=== PATIENT | female | born 1980 | race Caucasian/White ===

== ENCOUNTER → 2017-11-02 11:19 | Outpatient (CLI) | payer OTHER, SELFPAY ==
[2017-11-02 11:23] LABS: Adenovirus,PCR Not Detected (NotDetected); Bordetella Pertussis Not Detected (NotDetected); Chlamydophila Pneumoniae, PCR Not Detected (NotDetected); Coronavirus 229E Not Detected (NotDetected); Coronavirus NL63 Not Detected (NotDetected); Coronavirus OC43 Not Detected (NotDetected); Coronovirus HKU1,PCR Not Detected (NotDetected); Human Metapneumovirus Not Detected (NotDetected); Influenza A, PCR Not Detected (NotDetected); Influenza AH1, 2009 Not Detected (NotDetected); Influenza AH1, PCR Not Detected (NotDetected); Influenza AH3,PCR Not Detected (NotDetected); Influenza B, PCR Not Detected (NotDetected); Mycoplasma Pneumoniae, PCR Not Detected (NotDected); Parainfluenza 1, PCR Not Detected (NotDetected); Parainfluenza 2, PCR Not Detected (NotDetected); Parainfluenza 3, PCR Not Detected (NotDetected); Parainfluenza 4, PCR Not Detected (NotDetected); Respiratory Syncytial Virus Not Detected (NotDetected)
[2017-11-02 15:45] LABS: Rhinovirus/Enterovirus Detected (NotDetected)
== END ==
PROVIDERS: Visit Provider Nurse Practitioner Family
DX: J02.9 Acute pharyngitis, unspecified (principal)
CPT/HCPCS: 87070; 87486; 87581; 87633; 87798

== ENCOUNTER 2018-11-12 12:28 | Emergency (ER) | payer OTHER, SELFPAY ==
--- NOTE | 2018-11-12 12:39 | XR_ITS ---
XR wrist RT min 3V Ordering Physician: Nasreen Holland APRN Patient Age: 38 years: Female HISTORY: ITS.REASON: INJURY patient injured at work. Hit wrist on metal and heard pop. Swelling. No previous injury. TECHNIQUE: 3 views right wrist COMPARISON :None FINDINGS . Right wrist intact with no acute fracture evident. Undulation along the lateral margin of the radial metaphysis most likely reflects residual from old close growth plate. The fat plane anterior to wrist appears normal. The carpals appear normal, with normal relationships on the current projections. Likely there is a thin area just very developed in particular like partial ulnaI s on apices likely no subdural. IMPRESSION: Negative right wrist. No fracture.
[2018-11-12 12:47] VITALS: BP 140/78; PULSE 78; RESP 20; TEMP 36.8; O2SAT 98; BMI 25.2
--- NOTE | 2018-11-12 13:12 | HMH.EDUTC ---
[facility] [place] Dis[place] Clinical Impression: Right wrist sprain Qualifiers: Encounter type: initial encounter Qualified Code(s): S63.501A - Unspecified sprain of right wrist, initial encounter Disposition: Home, Self-Care Condition on Discharge: Good Additional Instructions: follow up with ortho call tomorrow for appointment rest Ice with cold pack for 20 minutes remove 20 minutes may repeat for comfort Adriano wrap for support and swelling Be sure not too tight but not to lose either Ibuprofen every 6 hours as needed for pain or inflammation. If needs something more you can take Tylenol every 4 hours as needed as long as her primary care has told he was okayed for you to take both. Follow-up immediately if new or worsening symptoms or no noticeable improvement over the next 3-5 days. Referrals: Jessie Hooker MD [Primary Care Provider] - Nelida Novak MD [Physician] - Time of Disposition: 13:25 Medical Decision Making - [place] Inquiry Pt receiving controlled substance: No Vital Signs: 11/12/18 12:47 Temperature 98.3 F Temperature Source Oral Pulse Rate [Left Radial] 78 Respiratory Rate 20 Blood Pressure [Left Arm] 140/78 Blood Pressure Mean [Left Arm] 98 Blood Pressure Source [Left Arm] Automatic Cuff Blood Pressure Position [Left Arm] Sitting 02 Sat by Pulse Oximetry 98 Oxygen Delivery Method Room Air Orders (Tests/Meds): ORDERS Category Date Time Status Wrist XR right minimum 3 views [XR wrist RT min 3V] Exams 11/12/18 12:39 Taken Stat [facility] [place] HPI - General Chief complaint: PAIN Stated complaint: wc RT WRIST PAIN Time Seen by Provider: 11/12/18 13:12 Mode of Arrival: Ambulatory Source of Information: Patient Limitations: No Limitations Description of Symptoms (Recalled from Triage Doc. by RN): PT C/O INJURED RT WRIST HEENT Symptoms (Recalled from RN notes): No Resp Symptoms (Recalled from RN notes): No Skin Symptoms (Recalled from RN notes): No MS Symptoms (Recalled from RN notes): Yes (RT WRIST INJURY) Functional Status (Recalled from RN notes): N/A - History of Present Illness Provider Complaint: 38-year-old female presents for right wrist pain. Patient states she was opening a box and her hand slipped and she hit her wrist on a metal shelf. 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 - Related Data Allergies Allergy/AdvReac Type Severity Reaction Status Date / Time No Known Allergies Allergy Unverified 05/11/17 15:08 - Worker's Comp Is this a Worker's Comp case?: No [facility] History - Hepatitis A Screen Drug use history?: No High risk sexual behaviors?: No History of sexually transmitted infection?: No Currently employed?: No Childcare worker?: No Do you have indoor plumbing?: Yes Do you have electricity?: Yes Attestation statement:: This patient has been screened for Hepatitis A risk factors. I have reviewed the patient's past medical history: Yes Medical History: Denies:: Diabetes Mellitus Type 1, Diabetes Mellitus Type 2, MRSA Amputation: No Fractures: No - Social History Smoking Status: Never smoker Alcohol Intake: never Occupational Status: employed - Psychiatric History Expresses thoughts of harming self/others: None Suicide Plan Description: No Plan ROS Obtained: Yes Systems reviewed as appropriate & no additional complaints - Constitutional Constitutional: Reports system reviewed and no additional complaints, except as docu, Denies fever(s) - Eyes Eyes: Reports system reviewed and no additional complaints, except as docu - ENT Ears, Nose, Mouth, and Throat: Reports system reviewed and no additional complaints, except as docu - Cardiovascular Cardiovascular: Reports system reviewed and no additional complaints, except as docu - Respiratory Respiratory: Yes system reviewed and no additional complaints, except as docu - Gas
[2018-11-12 13:32] VITALS: BP 140/78; PULSE 78; RESP 20; TEMP 36.8; O2SAT 98
== END 2018-11-12 13:33 | disposition home or self-care (01) ==
PROVIDERS: Emergency Provider Nurse Practitioner Family; PCP Family Medicine
DX: S63.501A Unspecified sprain of right wrist, initial encounter (principal); W22.09XA Striking against other stationary object, initial encounter; Y92.69 Other specified industrial and construction area as the place of occurrence of the external cause; Y99.0 Civilian activity done for income or pay
CPT/HCPCS: 29125; 73110; 99202

== ENCOUNTER 2018-11-29 15:21 | Outpatient (RCR) | payer OTHER, MEDICAID, SELFPAY | END 2018-11-29 15:40 | disposition home or self-care (01) | LOC: OT 15:21 | PROVIDERS: Visit Provider Orthopaedic Surgery | DX: M65.4 Radial styloid tenosynovitis [de Quervain] (principal) | CPT/HCPCS: 97763 ==

== ENCOUNTER → 2019-03-21 09:54 | Outpatient (CLI) | payer OTHER, SELFPAY ==
--- NOTE | 2019-03-21 10:00 | XR_ITS ---
PROCEDURE: XR FOOT WT BEARING RT 3V CLINICAL INDICATION: fracture follow up Pain, fracture follow-up COMPARISON: XR FOOT RT MIN 3V from 02/12/2019 FINDINGS: Nondisplaced fracture involving the base of the 5th metatarsal is once again noted with the fracture line the may be somewhat less apparent. The fracture remains nondisplaced. The joint spaces are well-preserved. No significant degenerative/arthritic changes. No erosive changes evident. Other findings:None. IMPRESSION: Nondisplaced fracture base of 5th metatarsal once again noted. The fracture line may be somewhat less apparent. Dictated by: Awais Hughes MD 03/21/2019 17:52 Electronically signed by Awais Hughes MD in [place] 03/21/2019 17:52
== END ==
PROVIDERS: PCP Nurse Practitioner Family; Visit Provider Podiatrist
DX: S92.354D Nondisplaced fracture of fifth metatarsal bone, right foot, subsequent encounter for fracture with routine healing (principal); T14.8XXA Other injury of unspecified body region, initial encounter
CPT/HCPCS: 73630

== ENCOUNTER → 2019-04-24 10:48 | Outpatient (CLI) | payer OTHER, SELFPAY ==
--- NOTE | 2019-04-24 11:01 | XR_ITS ---
PROCEDURE: XR FOOT WT BEARING RT 3V CLINICAL INDICATION: fracture follow up Follow-up fracture COMPARISON: XR FOOT RT MIN 3V from 02/12/2019 XR FOOT WT BEARING RT 3V from 03/21/2019 FINDINGS: Nondisplaced fracture once again noted at the base of the 5th metatarsal. The fracture line is still visible but does appear less apparent on the oblique view as well as the lateral view. Other findings:None. IMPRESSION: Healing nondisplaced fracture at the base of the 5th metatarsal Dictated by: Awais Hughes MD 04/24/2019 11:45 Electronically signed by Awais Hughes MD in [place] 04/24/2019 11:45
== END ==
PROVIDERS: Visit Provider Podiatrist
DX: S92.354D Nondisplaced fracture of fifth metatarsal bone, right foot, subsequent encounter for fracture with routine healing (principal)
CPT/HCPCS: 73630

== ENCOUNTER 2021-01-07 12:46 | Emergency (ER) | payer OTHER, SELFPAY ==
[2021-01-07 13:05] VITALS: BP 123/97; PULSE 83; RESP 18; TEMP 36.7; O2SAT 100; BMI 27.8
--- NOTE | 2021-01-07 13:26 | HMH.EDUTC ---
[facility] [place] Clinical Impression: Sinusitis Qualifiers: Sinusitis location: unspecified location Chronicity: unspecified Qualified Code(s): J32.9 - Chronic sinusitis, unspecified Disposition: Home, Self-Care Condition on Discharge: Good Instructions: Sinusitis, DI for Sinusitis Additional Instructions: *Monitor Temp, Over the counter Motrin or Tylenol as directed/as needed Tylenol every 4 hours and Motrin every 6 hours (as long as your family doctor has told you that you can take it) for fever or pain. and straight to ER if unable to lower temp less than 101.0 after medication given *Warm salt water gargles may help to soothe the throat *Throat Lozenges *Warm fluids like tea with honey may help to soothe the throat *Sleep elevated *Humidifier/Vaporizer Take medication as prescribed Follow up IMMEDIATELY for new or worsening symptoms or no Noticeable improvement over the next 48-72 hours. 911 for difficulty breathing or swallowing Make sure to drink plenty of fluids with Mucinex You were tested for today for COVID19 your test result should be back in the next 24-48 hours, you may call to the [facility] to see if your test results are back in the next 48 hours [phone] [facility] hours are 9am-9pm You was given a handout with instructions for Self Quarantine and Self isolation for while you wait on test results and what to do if they are positive If you are positive the Health Dept will be contacting you also Make sure to take your Vitamins Vit. C Vit D and Zinc if you can take them Prescriptions: Amoxicillin/Potassium Clav [Augmentin 875-125 Tablet] 1 tab PO Q12H 7 Days #14 tab Transmission Status: Received by [facility] predniSONE [Deltasone 10mg tablet] 10 mg PO BID 5 Days #10 tab Transmission Status: Received by [facility] guaiFENesin [Mucinex 600mg tablet] 1 - 2 tab PO Q12H PRN #20 tab.er.12h PRN Reason: Congestion Transmission Status: Received by [facility] Ondansetron [Zofran 4mg ODT] 4 mg PO TIDP PRN #12 tab PRN Reason: Nausea Transmission Status: Received by [facility] Referrals: Ignacia Villanueva APRN [Primary Care Provider] - As needed Forms: Work/School Release Time of Disposition: 13:34 Medical Decision Making - [place] Inquiry Pt receiving controlled substance: No [place] was queried for this patient: No Vital Signs: 01/07/21 13:05 01/07/21 13:36 Temperature 98.1 F 98.1 F Temperature Source Oral Pulse Rate 83 Pulse Rate [Right Brachial] 83 Respiratory Rate 18 18 Blood Pressure 123/97 H Blood Pressure [Right Arm] 123/97 H Blood Pressure Mean [Right Arm] 105 Blood Pressure Source [Right Arm] Automatic Cuff Blood Pressure Position [Right Arm] Sitting 02 Sat by Pulse Oximetry 100 Oxygen Delivery Method Room Air [facility]PI - General Stated complaint: covid symtoms Time Seen by Provider: 01/07/21 13:26 Mode of Arrival: Ambulatory Source of Information: Patient Limitations: No Limitations Description of Symptoms (Recalled from Triage Doc. by RN): PATIENT C/O HEADACHE, VOMITING, HEADACHE, FEVER, CHILLS, COUGH, RUNNY NOTES, AND BODY ACHES X 2 DAYS HEENT Symptoms (Recalled from RN notes): Yes Resp Symptoms (Recalled from RN notes): Yes Skin Symptoms (Recalled from RN notes): No MS Symptoms (Recalled from RN notes): No Functional Status (Recalled from RN notes): WNL - History of Present Illness Provider Complaint: Patient state that she has been having sinus pain and pressure on and off for about a week worse in the last couple of days also with cough, headache, N/V, body aches and muscle aches with fever States that she hasnt been exposed to COVID that she is aware of States that today she was still feeling bad so she came into get checked - Related Data Previous Rx's Medication Instructions Recorded Ibuprofen [Ibuprofen 600mg 600 mg PO Q6HP PRN #30 tab 07/07/19 Tablet] Amoxicillin/Potassium Clav 1 tab PO Q12H 7 Days #14 tab 01/07/21
[2021-01-07 13:36] VITALS: BP 123/97; PULSE 83; RESP 18; TEMP 36.7; O2SAT 100
== END 2021-01-07 13:39 | disposition home or self-care (01) ==
PROVIDERS: Emergency Provider Nurse Practitioner; PCP Nurse Practitioner Family
DX: J32.9 Chronic sinusitis, unspecified (principal); Z20.822 Contact with and (suspected) exposure to COVID-19; Z87.442 Personal history of urinary calculi
CPT/HCPCS: 99202; G0463; U0003

== ENCOUNTER 2021-04-14 15:11 | Emergency (ER) | payer OTHER, SELFPAY ==
[2021-04-14 15:13] VITALS: BP 144/79; PULSE 79; RESP 22; TEMP 36.6; O2SAT 100; BMI 29.2
[2021-04-14 17:02] VITALS: BP 144/79
--- NOTE | 2021-04-14 17:08 | XR_ITS ---
PROCEDURE INFORMATION: Exam: XR Chest Exam date and time: 04/14/2021 5:08 PM Age: 40 years old Clinical indication: Cough; Additional info: Cough, lung pain TECHNIQUE: Imaging protocol: XR of the chest. Views: 2 views. COMPARISON: CR XR CHEST PORTABLE 08/22/2019 1:30 PM FINDINGS: Lungs: No acute pulmonary findings. No pulmonary consolidation. Lung volumes within normal limits. Pleural spaces: Unremarkable. No significant pleural effusion. No pneumothorax. Heart/Mediastinum: The cardiac silhouette is normal. Bones/joints: There is no evidence of acute fracture. Soft tissues: No acute findings in the soft tissues. IMPRESSION: No acute findings.
[2021-04-14 17:23] LABS: Basophils # 0.2 K/mm3 (0-0.2); Basophils % 1.6 % (0.1-2.0); Eosinophils # 0.5 K/mm3 (0.0-0.4); Eosinophils % 4.5 % (0.1-12.0); Hematocrit 43.9 % (37.0-47.0); Hemoglobin 14.8 g/dL (12.2-16.2); Lymphocytes # 3.8 K/mm3 (0.7-4.5); Lymphocytes % 33.2 % (10-50); Mean Corpuscular HGB Conc 33.6 g/dL (31.8-35.4); Mean Corpuscular Volume 92.2 fl (81-99); Mean Platelet Volume 8.4 fl (7.4-10.4); Monocytes # 0.4 K/mm3 (0.1-1.0); Monocytes % 3.2 % (1.7-9.3); Neutrophils # 6.6 K/mm3 (1.8-7.8); Neutrophils % 57.5 % (37.0-80.0); Platelet Count 332 K/mm3 (142-424); Red Blood Count 4.77 M/mm3 (4.20-5.40); Red Cell Distribution Width 12.8 % (11.5-17.5); White Blood Count 11.5 K/mm3 (4.8-10.8)
[2021-04-14 17:35] LABS: Alanine Aminotransferase 15 U/L (12-78); Albumin Level 4.4 g/dl (3.5-5.0); Albumin/Globulin Ratio 1.5 (1.1-1.8); Alkaline Phosphatase 68 U/L (38-126); Aspartate Amino Transferase 28 U/L (14-36); Bilirubin,Total 0.4 mg/dl (0.2-1.3); Blood Urea Nitrogen 14 mg/dl (7-17); Calcium 9.1 mg/dl (8.4-10.2); Carbon Dioxide 33 mmol/L (22.0-30.0); Chloride 101 mmol/L (98-107); Creatinine Clearance Estimated 146 mL/min (50-200); Estimated Glomerular Filt Rate 112 ml/min (>60); GFR (African American) 135 ML/MIN (>60); Glucose 93 mg/dl (74-100); Sodium 136 mmol/L (136-145); Total Protein,Serum 7.4 g/dl (6.3-8.2)
[2021-04-14 18:04] VITALS: BP 107/73; PULSE 81; O2SAT 100
--- NOTE | 2021-04-14 18:38 | ECG_ITS ---
APPROVED REPORT Exam: Resting ECG HR:70 bpm ECG Measurements Heart Rate 70 AXES [place] 168 P 59 QRSd 94 QRS 47 QT 426 T 35 QTc 460 Conclusion Normal sinus rhythm Incomplete right bundle branch block Borderline ECG Electronically signed by : Chris Gaxiola MD 04/15/2021 12:16:01
--- NOTE | 2021-04-14 18:41 | HMH.EDGENADL ---
ED Disposition Clinical Impression: Chest pain Disposition: Home, Self-Care Condition on Discharge: Fair Referrals: Ignacia Villanueva APRN [Primary Care Provider] - - Critical Care Critical Care Time: No Attestation: On 04/14/21, the high probability of a clinically significant, sudden or life threatening deterioration of the following system(s) required my full and direct attention, intervention and personal management. The time I documented below is in addition to time spent performing reported procedures but includes the following listed in this critical care notation. Medical Decision Making - [place] Inquiry Pt receiving controlled substance: No Vital Signs: 04/14/21 15:13 04/14/21 17:02 04/14/21 18:04 Temperature 97.9 F Temperature Source Oral Pulse Rate 81 Pulse Rate [Apical] 79 Respiratory Rate 22 Blood Pressure 144/79 H 107/73 L Blood Pressure [Right Arm] 144/79 H Blood Pressure Mean 98 87 Blood Pressure Mean [Right Arm] 100 02 Sat by Pulse Oximetry 100 100 - Lab Data Lab Results 04/14/21 17:17: WBC 11.5 H, RBC 4.77, Hgb 14.8, Hct 43.9, MCV 92.2, MCH 31.0, MCHC 33.6, RDW 12.8, Plt Count 332, MPV 8.4, Neut % (Auto) 57.5, Lymph % (Auto) 33.2, [place] % (Auto) 3.2, Eos % (Auto) 4.5, Baso % (Auto) 1.6, Neut # (Auto) 6.6, Lymph # (Auto) 3.8, [place] # (Auto) 0.4, Eos # (Auto) 0.5 H, Baso # (Auto) 0.2 04/14/21 17:17: Sodium 136, Potassium 4.0, Chloride 101, Carbon Dioxide 33 H, Anion Gap 6.0, BUN 14, Creatinine 0.60, Estimated Creat Clear 146, Estimated GFR 112, Est GFR ( Amer) 135, Glucose 93, Calcium 9.1, Total Bilirubin 0.4, AST 28, ALT 15, Alkaline Phosphatase 68, Total Protein 7.4, Albumin 4.4, Globulin 3.0, Albumin/Globulin Ratio 1.5 04/14/21 17:17: D-Dimer 0.49 04/14/21 17:17: Troponin I < 0.01 Result diagrams: 04/14/21 17:17 04/14/21 17:17 Orders (Tests/Meds): ED MEDICATIONS Discontinued Medications Generic Name Dose Route Start Last Admin Trade Name Timothy PRN Reason Stop Dose Admin Albuterol Sulfate 2.5 mg 04/14/21 17:18 04/14/21 17:20 Albuterol 0.083% 2.5 Mg/3 Ml Neb IH 04/14/21 17:19 2.5 mg ONCE ONE Administration ORDERS Category Date Time Status Troponin I Q3H Lab 04/14/21 21:30 Ordered Troponin I Q3H Lab 04/15/21 00:30 Ordered Medical Decision Narrative: DDx includes but not limited to ACS, arrhythmia, PE, pneumonia. HDS, NAD, on room air. EKG obtained shows NSR, no STEMI. Troponin wnl. CXR without acute findings. Low risk wells PE score, d dimer wnl. Labs including cbc, cmp not acutely actionable. Remains HDS, on room air in ED. Has outpt echo on 04/22, cardiac stress test on 05/04. Advised to follow up with PCP and with cardiology. Given ED return precautions. General Adult HPI - General Chief complaint: Upper Respiratory Infection Stated complaint: cough,congestion Time Seen by Provider: 04/14/21 15:45 Mode of Arrival: Ambulatory Source of Information: Patient Limitations: No Limitations Description of Symptoms (Recalled from ER Triage Doc. by RN): Pt states 5 weeks ago she had covid and was better but now since the last 5 days she has had a cough, pleuric pain, and congestion. Denies fever. - History of Present Illness HPI narrative: 40 yo female w/ no reported PMH presents for evaluation of chest pain. Patient states she has had constant central chest pain for 5 days associated with productive cough, chills, dyspnea worse with exertion and deep breathing. States she had covid 19 infection 9 weeks ago. Received steroid course 3 weeks ago that mildly improved chest pain she was having at that time - states her PCP placed her on steroid course at that time for inflammation in my lungs . States she has had intermittent chest pain that is different from current pain for several months and has upcoming cardiology evaluation with echocardiogram scheduled. - Related Data Previous Rx's Medication Instructions Recorded Ibuprofen
[2021-04-14 18:42] LABS: D-Dimer 0.49 ug/mL (0.0-0.5)
[2021-04-14 18:50] LABS: Troponin I < 0.01 ng/ml (0.00-0.034)
[2021-04-14 20:48] VITALS: BP 121/76; PULSE 87; RESP 14; TEMP 36.6; O2SAT 98
== END 2021-04-14 20:53 | disposition home or self-care (01) ==
PROVIDERS: Emergency Provider Student in an Organized Health Care Education/Training Program; PCP Nurse Practitioner Family
DX: J06.9 Acute upper respiratory infection, unspecified (principal); R07.9 Chest pain, unspecified
CPT/HCPCS: 36415; 71046; 80053; 84484; 85025; 85378; 93005; 99283

== ENCOUNTER → 2021-04-22 08:18 | Outpatient (CLI) | payer OTHER, SELFPAY ==
--- NOTE | 2021-04-22 08:19 | CA_ITS ---
APPROVED REPORT EXAM: Comprehensive 2D, Doppler, and color-flow Echocardiogram [employer] Gunner: Cayla Lincoln CRT Ht: 5 ft 3 in Wt: 156lbs BSA: 1.74 BP: 127/74 mmHg Indications: Chest Pain, Shortness of Breath 2D Dimensions LVOT 2.00 cm (M/F) 1.5-2.5 LA Volume 12.80 mL LA Volume Index 7.40 mL/m2 (M/F) 16-34 M-Mode Dimensions RVDd 1.77 cm (0.9-2.6) LA Diam 2.48 cm (1.9-4.0) LVDd 4.32 cm (3.5-5.7) Ao Diam 3.26 cm (2.0-3.7) LVDs 3.04 cm (3.5-5.7) IVSd 1.07 cm (0.6-1.1) PWd 0.43 cm (0.6-1.1) EF (Teich) 56.90% FS 29.60% EDV (Teich) 84.00 mL TAPSE 2.33 (<1.7) ESV (Teich) 36.20 mL LV Diastology E Decel Time 173.00 (160-240 msec) E/A Ratio 1.03 MED E' 11.30 (< 7 cm/sec) MED A' 7.50 cm/s E'/MED E' Ratio 11.30 (>14) LAT E' 11.40 (<10 cm/sec) LAT A' 6.10 cm/s E/LAT E' Ratio 11.20 (>14) Aortic Valve AO Peak GR. 4.50 mmHg Mitral Valve MV E Max Julito. 128.00 (40-130 cm/s) MV A Velocity 123.00 (40-130 cm/s) E/A Ratio 1.03 MV Decel. Time 173.00 (160-240 ms) MV PHT 51.00 ms Pulmonary Valve PV Peak Velocity 98.00 (50-150 cm/s) Tricuspid Valve TR P. Velocity 166.00 cm/s RAP Estimate 10.00 mmHg RVSP 21.00 mmHg Left Ventricle Left atrium is normal size, left ventricle is normal size, there is no concentric left ventricular hypertrophy, visually estimated ejection fraction 55% with no regional wall motion abnormality, diastolic parameters are inconclusive in the study. Right Ventricle Right atrium and right ventricle are normal size and contractility. Aortic Valve Aortic valve leaflets are not well visualized, there is no aortic stenosis or aortic insufficiency. Mitral Valve Mitral valve grossly normal, there is trace mitral regurgitation. Tricuspid Valve Tricuspid valve grossly normal, there is trace tricuspid regurgitation, tricuspid regurgitation jet velocity is inadequate for calculation of the right ventricular systolic pressure. Pulmonic Valve Pulmonic valve is poorly visualized. Great Vessels Aortic root is normal size. Inferior vena cava is normal size with normal inspiratory collapse. Pericardium No significant pericardial effusion noted. Conclusion 1. Normal left ventricular size, preserved left ventricular systolic function, visually estimated ejection fraction 55% with no regional wall motion abnormality, diastolic parameters are inconclusive in the study. 2. Trace mitral and tricuspid regurgitation. 3. No significant pericardial effusion noted. Electronically signed by : Bart Garcia MD 04/22/2021 20:05:14
--- NOTE | 2021-04-22 08:19 | CA_ITS ---
APPROVED REPORT Exam: Exercise Treadmill Technologist: Majo Petit, Ht: 5 ft 3 in Wt: 156 lbs BSA: 1.74 m2 HR: 72 bpm BP: 122/62 mmHg Rhythm: NSR, NORMAL Medical History Medications: Ibuprofen,,,,, Allergies: No known drug allergies Stress Test Details Test: Paulette, Exercise stress testing was performed using a Paulette protocol. HR Resting HR: 81 bpm Max Heart Rate (APMHR): 182 bpm Max HR Achieved: 158 bpm Target HR (85% APMHR): 154 bpm % of APMHR: 86 Recovery HR: 101 bpm BP Resting BP: 99/72 mmHg Max BP: 147/82 mmHg Recovery BP: 129.0/83.0 mmHg ECG Resting ECG: NSR, NORMAL Clinical Exercise duration: 09:32 min Highest Stage Achieved: Exercise capacity: 10.1 METs Stress ECG Conclusion MAX WP=448. % OF PM=87%. MAX B/P=147/82. METS 10.1. TEST STOPPED DUE TO=SOA, FATIGUE. VAGUE PRE TEST CP CONSTANT THIS AM. EXERCISE 9:32 ON PAULETTE PROTOCOL. NO SIGNIFICANT CHANGE IN PRETEST CP WITH EXERCISE. less than 1.[address] segment depression. NORMAL GXT. Test Summary REST . . . . . . . Standing REST . . . . . . . Sitting REST . . . . . . . Sitting REST 04:32 0.0 0.0 81 . 99/ 72 . . Stage 1 01:00 10.0 1.7 110 . . . . Stage 1 02:00 10.0 1.7 124 . . . . Stage 1 03:00 10.0 1.7 118 . 118/ 68 . . Stage 2 01:00 12.0 2.5 132 . . . . Stage 2 02:00 12.0 2.5 135 . . . . Stage 2 03:00 12.0 2.5 138 . 124/ 70 . . Stage 3 01:00 14.0 3.4 147 . . . . Stage 3 02:00 14.0 3.4 149 . . . . Stage 3 03:00 14.0 3.4 145 . . . . Stage 4 00:32 16.0 4.2 157 . . . Stop exercise at 09:32 RECOVERY 01:00 0.0 0.0 133 . . . . RECOVERY 02:00 0.0 0.0 114 . . . . RECOVERY 03:00 0.0 0.0 97 . 147/ 82 . . RECOVERY 04:00 0.0 0.0 97 . 147/ 82 . . RECOVERY 05:00 0.0 0.0 100 . 120/ 82 . . RECOVERY 05:42 0.0 0.0 105 . 129/ 83 . . Electronically signed by : Bart Garcia MD 04/22/2021 19:37:48
== END ==
PROVIDERS: PCP Nurse Practitioner Family; Visit Provider Urology
DX: R06.00 Dyspnea, unspecified (principal); R07.9 Chest pain, unspecified; R42 Dizziness and giddiness
CPT/HCPCS: 93017; 93306

== ENCOUNTER → 2021-04-30 15:12 | Outpatient (CLI) | payer OTHER, SELFPAY | PROVIDERS: PCP Nurse Practitioner Family; Visit Provider Internal Medicine Pulmonary Disease | DX: R06.00 Dyspnea, unspecified (principal) | CPT/HCPCS: 94060; 94618; 94726; 94729 ==

== ENCOUNTER → 2021-05-13 14:51 | Outpatient (CLI) | payer OTHER, SELFPAY ==
[2021-05-13 15:21] LABS: Basophils # 0.1 K/mm3 (0-0.2); Basophils % 0.8 % (0.1-2.0); Eosinophils # 0.3 K/mm3 (0.0-0.4); Hematocrit 44.5 % (37.0-47.0); Lymphocytes # 2.9 K/mm3 (0.7-4.5); Lymphocytes % 29.2 % (10-50); Mean Corpuscular HGB Conc 33.7 g/dL (31.8-35.4); Mean Corpuscular Hemoglobin 30.9 pg (27.0-31.2); Mean Corpuscular Volume 91.5 fl (81-99); Mean Platelet Volume 7.8 fl (7.4-10.4); Monocytes # 0.4 K/mm3 (0.1-1.0); Monocytes % 4.3 % (1.7-9.3); Neutrophils # 6.3 K/mm3 (1.8-7.8); Neutrophils % 62.7 % (37.0-80.0); Platelet Count 313 K/mm3 (142-424); Red Blood Count 4.87 M/mm3 (4.20-5.40); Red Cell Distribution Width 12.2 % (11.5-17.5); White Blood Count 10.1 K/mm3 (4.8-10.8)
[2021-05-13 15:36] LABS: D-Dimer 0.59 ug/mL (0.0-0.5)
[2021-05-13 15:42] LABS: Blood Urea Nitrogen 12 mg/dl (7-17); Estimated Glomerular Filt Rate 112 ml/min (>60); GFR (African American) 135 ML/MIN (>60)
[2021-05-13 15:48] LABS: C-Reactive Protein 1.5 mg/L (0-4)
[2021-05-20 15:12] LABS: D001-IgE D pteronyssinus 2.73 kU/L (Class III); E001-IgE Cat Dander <0.10 kU/L (Class 0); E005-IgE Dog Dander <0.10 kU/L (Class 0); E072-IgE Mouse Urine <0.10 kU/L (Class 0); G002-IgE Bermuda Grass <0.10 kU/L (Class 0); G006-IgE Timothy Grass <0.10 kU/L (Class 0); Immunoglobulin E, Total 279 IU/mL (6-495); M001-IgE Penicillium chrysogen <0.10 kU/L (Class 0); M002-IgE Cladosporium herbarum <0.10 kU/L (Class 0); M003-IgE Aspergillus fumigatus <0.10 kU/L (Class 0); M006-IgE Alternaria alternata <0.10 kU/L (Class 0); T001-IgE Maple/Box Elder <0.10 kU/L (Class 0); T003-IgE Common Silver Birch <0.10 kU/L (Class 0); T006-IgE Cedar, Mountain 0.11 kU/L (Class 0/I); T007-IgE Oak, White <0.10 kU/L (Class 0); T008-IgE Elm, American 0.22 kU/L (Class 0/I); T010-IgE Walnut 0.11 kU/L (Class 0/I); T011-IgE Maple Leaf Sycamore 0.12 kU/L (Class 0/I); T014-IgE Cottonwood 0.13 kU/L (Class 0/I); T015-IgE Ash, White 0.22 kU/L (Class 0/I); T022-IgE Pecan, Hickory <0.10 kU/L (Class 0); T070-IgE White Mulberry <0.10 kU/L (Class 0); W001-IgE Ragweed, Short 0.15 kU/L (Class 0/I); W011-IgE Thistle, Russian 0.23 kU/L (Class 0/I); W014-IgE Pigweed, Common <0.10 kU/L (Class 0); W018-IgE Sheep Sorrel <0.10 kU/L (Class 0)
== END ==
PROVIDERS: Visit Provider Internal Medicine Pulmonary Disease
DX: J45.909 Unspecified asthma, uncomplicated (principal); R06.00 Dyspnea, unspecified
CPT/HCPCS: 36415; 82565; 82785; 84520; 85025; 85378; 86003; 86140

== ENCOUNTER → 2021-06-18 15:20 | Outpatient (CLI) | payer OTHER, SELFPAY ==
--- NOTE | 2021-06-18 15:21 | CT_ITS ---
FINAL REPORT TECHNIQUE: Thin section axial CT images were performed from the lung apices to the upper abdomen after the administration of IV contrast. 3-D and MIP reconstructions performed. This study was performed with techniques to keep radiation doses as low as reasonably achievable (ALARA). Individualized dose reduction techniques using automated exposure control or adjustment of mA and/or kV according to the patient''s size were employed. CLINICAL HISTORY: SOB, HX OF COVID IN JAN 2021 FINDINGS: The mediastinal vasculature is well opacified. There is some soft tissue in the anterior mediastinum which is probably related to residual inflammatory tissue. There is no evidence of pulmonary embolism. The thoracic aorta is patent without evidence of dissection. There is no axillary adenopathy. There is no mediastinal or hilar adenopathy. The heart size is normal. There is no pleural or pericardial effusion. There is a small sliding-type hiatal hernia. Lung window images demonstrate a calcified granuloma in the left lung base. There is a noncalcified nodule in the posterior left upper lobe measuring 3 mm seen on image 20 of series 3. Limited images of the upper abdomen are unremarkable. IMPRESSION: 3 mm nodule in the posterior left upper lobe, indeterminate but likely post inflammatory. No evidence of pulmonary embolism. Small hiatal hernia. Reviewed, Interpreted and Dictated by Juvencio Adhikari MD Transcribed by Jacqueline Mercado Authenticated by Juvencio Adhikari MD on 06/18/2021 04:36:22 PM [facility]
== END ==
PROVIDERS: PCP Nurse Practitioner Family; Visit Provider Internal Medicine Pulmonary Disease
DX: R06.00 Dyspnea, unspecified (principal); R79.89 Other specified abnormal findings of blood chemistry
CPT/HCPCS: 71275; Q9967

== ENCOUNTER 2022-04-13 14:12 | Emergency (ER) | payer OTHER, SELFPAY ==
[2022-04-13 15:30] VITALS: BP 144/85; PULSE 86; RESP 19; TEMP 37; O2SAT 100; BMI 26.2
--- NOTE | 2022-04-13 15:44 | EXP.UTC ---
Discharge Plan Disposition Patient Disposition: Home, Self-Care Condition: Good Prescriptions Prescriptions: New nnuphakuufdwmvp-[id number]-[id number] [Bromfed DM] 2-30-10 mg/5 mL Syrup 10 ml PO Q4H PRN (Reason: Cough) Qty: 240 0RF No Action Breo Ellipta 100-25 mcg/dose blister with device 1 inh INHALATION DAILY Qty: 90 3RF albuterol sulfate 90 mcg/actuation HFA aerosol inhaler 1 inh INHALATION QID PRN (Reason: shortness of breath or wheezing) Qty: 8.5 12RF ibuprofen 600 MG tablet 600 mg PO Q6HP PRN (Reason: Mild Pain) Qty: 30 0RF Referrals Follow up/Referrals: Shannon Elena [Primary Care Provider] - See instructions Activity Restrictions/Add. Instructions Additional Instructions/Restrictions: * No sign of bacterial infection. Likely viral. Virus can take 7-14 days to run their course *Monitor Temp, Over the counter Motrin or Tylenol as directed/as needed Tylenol every 4 hours and Motrin every 6 hours (as long as your family doctor has told you that you can take it) for fever or pain. and straight to ER if unable to lower temp less than 101.0 after medication given *Warm salt water gargles may help to soothe the throat *Throat Lozenges? *Warm fluids like tea with honey may help to soothe the throat? *Sleep elevated *Humidifier/Vaporizer *Flonase 2 sprays in each nostril daily but be aware that it may take 2-3 days before you notice improvement *Bromfed may cause drowsiness. Know how it effects you (your child) before driving, caring for small child, or sending your child to school. Not other antihistamines/allergy medications while taking bromfed Your throat swab was sent for culture. Those results are typically sent to your primary care. Be sure to follow up in 2-3 days with your family doctor/primary care physician if no improvement so they can review those result and treat if necessary. If you don?t have a primary care doctor, I recommend you get one but in the mean time, you will have to return to a walk in clinic Follow up IMMEDIATELY for new or worsening symptoms or no Noticeable improvement over the next 48-72 hours. 911 for difficulty breathing or swallowing Discharge ED Provider: Nataliya Sinha [facility] [place] General Stated complaint: Fever, BA, Drainage, KC, Ear pain Mode of Arrival: Ambulatory Source of Information: Patient Limitations: No Limitations Time Seen by Provider: 04/13/22 15:44 Description of Symptoms (Recalled from Triage Doc. by RN): PATIENT C/O FEVER, COUGH, CHEST CONGESTION, HEADACHE, EAR PAIN, AND RUNNY NOSE HEENT Symptoms (Recalled from RN notes): No Resp Symptoms (Recalled from RN notes): Yes Skin Symptoms (Recalled from RN notes): No MS Symptoms (Recalled from RN notes): No Functional Status (Recalled from RN notes): WNL History of Present Illness Provider Complaint: Patient states that two of her kids had RSV a week or so ago and oldest tested positive for the flu last week States that she has been having body aches, chills, sinus congestion cough pain in her ears and had fever at work this morning and was sent home States that she came in to get checked and tested where she has been around the flu Related Data Previous Rx's Medication Instructions Recorded ibuprofen 600 mg tablet 600 mg PO Q6HP PRN Mild Pain #30 07/07/19 tabs albuterol sulfate 90 mcg/actuation 1 inh inhalation QID PRN shortness 07/02/21 aerosol inhaler of breath or wheezing #8.5 grams fluticasone furoate 100 1 inh inhalation DAILY #90 ea 07/02/21 mcg-vilanterol 25 mcg/dose inhalation powder (Breo Ellipta) sqxzitsfwgtxwwx-[id number]-CQ 10 ml PO Q4H PRN Cough #240 mL 04/13/22 2 mg-30 mg-10 mg/5 mL oral syrup (Bromfed DM) Allergies Allergy/AdvReac Type Severity Reaction Status Date / Time No Known Allergies Allergy Verified 05/13/21 13:53 Worker's Comp Is this a Worker's Comp case?: No [facility] Medical History (Updated 04/13/22 @ 15:43 by Pham Perez RN)
[2022-04-13 16:05] VITALS: BP 144/85; PULSE 86; RESP 19; TEMP 37; O2SAT 100
[2022-04-13 17:04] LABS: UTC Influenza A Antigen Negative (Negative); UTC Influenza B Antigen Negative (Negative); UTC Strep Screen (Rapid) Negative (Negative)
== END 2022-04-13 16:12 | disposition home or self-care (01) ==
PROVIDERS: Emergency Provider Nurse Practitioner; PCP Nurse Practitioner Family
DX: J06.9 Acute upper respiratory infection, unspecified (principal)
CPT/HCPCS: 87804; 87880; 99212; G0463

== ENCOUNTER 2022-04-22 10:44 | Emergency (ER) | payer OTHER, SELFPAY ==
[2022-04-22 12:15] VITALS: BP 140/79; PULSE 70; RESP 18; TEMP 36.8; O2SAT 99; BMI 28.6
--- NOTE | 2022-04-22 12:46 | EXP.UTC ---
Discharge Plan Disposition Patient Disposition: Home, Self-Care Condition: Good Prescriptions Prescriptions: New azithromycin [Zithromax Z-Juan] 250 mg tablet See Rx Instructions .ROUTE .COMPLEX 5 Days Qty: 6 0RF Rx Instructions: For 250 mg dose pack: take 500 mg today (day 1), then 250 mg for 4 days (days 2-5) Referrals Follow up/Referrals: Provider,Referral, MD [Primary Care Provider] - See instructions Activity Restrictions/Add. Instructions Additional Instructions/Restrictions: *Monitor Temp, Over the counter Motrin or Tylenol as directed/as needed Tylenol every 4 hours and Motrin every 6 hours (as long as your family doctor has told you that you can take it) for fever or pain. and straight to ER if unable to lower temp less than 101.0 after medication given *Warm salt water gargles may help to soothe the throat *Throat Lozenges? *Warm fluids like tea with honey may help to soothe the throat? *Sleep elevated *Humidifier/Vaporizer Your throat swab was sent for culture. Those results are typically sent to your primary care. Be sure to follow up in 2-3 days with your family doctor/primary care physician if no improvement so they can review those result and treat if necessary. If you don?t have a primary care doctor, I recommend you get one but in the mean time, you will have to return to a walk in clinic Follow up IMMEDIATELY for new or worsening symptoms or no Noticeable improvement over the next 48-72 hours. 911 for difficulty breathing or swallowing You were tested for today for COVID19 your test result should be back in the next 24-48 hours, you may check your results on the [facility] [employer] [facility] Clinical Impressions Clinical Impression: URI (upper respiratory infection) Stand Alone Forms Stand Alone Forms: Work/School Release Instructions Patient Instructions: Sore Throat, DI for Sinusitis Discharge ED Provider[place] Nataliya Sinha [facility] [place] General Stated complaint: Lung pain, bodyaches, headache, ear pain, drainage Mode of Arrival: Ambulatory Source of Information: Patient Limitations: No Limitations Time Seen by Provider: 04/22/22 12:46 Description of Symptoms (Recalled from Triage Doc. by RN): PATIET C/O COUGH, CHEST CONGESTION, RUNNY NOSE, HEADACHE, FEVER AND BODY ACHES SINCE WEDNESDAY. RECENTLY EXPOSED TO FLU HEENT Symptoms (Recalled from RN notes): No Resp Symptoms (Recalled from RN notes): Yes Skin Symptoms (Recalled from RN notes): No MS Symptoms (Recalled from RN notes): No Functional Status (Recalled from RN notes): WNL History of Present Illness Provider Complaint: Patient states that she has a couple kids that recently tested positive for the flu States that on Wednesday she started with chest congestion, cough, burning in her chest with cough, States that she has also been having sinus congestion and pressure, headache and low grade fever States that she doesnt feel like flu but maybe sinusitis or bronchitis Related Data Previous Rx's Medication Instructions Recorded azithromycin 250 mg tablet See Rx Instructions PO .COMPLEX 5 04/22/22 (Zithromax Z-Juan) days #6 tabs Allergies Allergy/AdvReac Type Severity Reaction Status Date / Time No Known Allergies Allergy Verified 04/21/22 11:24 Worker's Comp Is this a Worker's Comp case?: No [facility] Disclaimer: The information contained in this section may have been updated after the patient was seen, as this information can be updated by other users. Medical History Asthma History of anemia Kidney stone Migraine Urinary tract infection Surgical History History of section History of hysterectomy History of tonsillectomy History of tubal ligation History of tympanostomy tube placement Social History (Updated 04/22/22 @ 12:35 by Pham Perez RN) Smoking Status: Never smoker a
[2022-04-22 12:48] LABS: UTC Strep Screen (Rapid) Negative (Negative)
[2022-04-22 13:00] VITALS: BP 140/79; PULSE 70; RESP 18; TEMP 36.8; O2SAT 99
[2022-04-22 13:24] LABS: Adenovirus,PCR Not Detected (NotDetected); Bordetella Pertussis Not Detected (NotDetected); Chlamydophila Pneumoniae, PCR Not Detected (NotDetected); Coronavirus 19, PCR Not Detected (NotDetected); Coronavirus 229E Not Detected (NotDetected); Coronavirus NL63 Not Detected (NotDetected); Coronavirus OC43 Not Detected (NotDetected); Coronovirus HKU1,PCR Not Detected (NotDetected); Human Metapneumovirus Not Detected (NotDetected); Influenza A, PCR Not Detected (NotDetected); Influenza AH1, 2009 Not Detected (NotDetected); Influenza AH1, PCR Not Detected (NotDetected); Influenza AH3,PCR Not Detected (NotDetected); Influenza B, PCR Not Detected (NotDetected); Mycoplasma Pneumoniae, PCR Not Detected (NotDetected); Parainfluenza 1, PCR Not Detected (NotDetected); Parainfluenza 2, PCR Not Detected (NotDetected); Parainfluenza 3, PCR Not Detected (NotDetected); Parainfluenza 4, PCR Not Detected (NotDetected); Respiratory Syncytial Virus Not Detected (NotDetected); Rhinovirus/Enterovirus Not Detected (NotDetected)
== END 2022-04-22 13:10 | disposition home or self-care (01) ==
PROVIDERS: Emergency Provider Nurse Practitioner
DX: J06.9 Acute upper respiratory infection, unspecified (principal)
CPT/HCPCS: 87581; 87632; 87798; 87880; 99212; C9803; G0463; U0003; U0005

== ENCOUNTER → 2022-08-31 17:26 | Outpatient (CLI) | payer OTHER, SELFPAY | PROVIDERS: PCP Family Medicine; Visit Provider Family Medicine | DX: J02.9 Acute pharyngitis, unspecified (principal) | CPT/HCPCS: 87070 ==

== ENCOUNTER 2022-09-21 10:42 | Emergency (ER) | payer OTHER, SELFPAY ==
[2022-09-21 10:53] VITALS: BP 124/87; PULSE 78; RESP 17; TEMP 37.4; O2SAT 100; BMI 28.7
--- NOTE | 2022-09-21 11:06 | EXP.UTC ---
Discharge Plan Disposition Patient Disposition: Home, Self-Care Condition: Good Prescriptions Prescriptions: New sulfamethoxazole-trimethoprim [Bactrim DS] 800-160 mg Tablet 1 tab PO BID Qty: 20 0RF cephalexin 500 mg capsule 500 mg PO QID Qty: 40 0RF mupirocin 2 % ointment 1 applic topical TID 7 Days Qty: 15 0RF ibuprofen [IBU] 800 mg tablet 800 mg PO Q8HP PRN (Reason: Moderate Pain) Qty: 30 0RF No Action amoxicillin 500 mg tablet 500 mg PO TID Qty: 30 0RF Referrals Follow up/Referrals: Provider,Referral, MD [Primary Care Provider] - See instructions Activity Restrictions/Add. Instructions Additional Instructions/Restrictions: Apply warm wet compresses to the affected sites three or four times per day for 15 minutes as tolerated. Stop the doxycycline. Start the bactrim and cephalexin antibiotics. Take the antibiotics as directed. Follow up in 3 days for a wound recheck. Follow up with your regular doctor. GO TO THE ER FOR ANY WORSENING SYMPTOMS OR CONCERNS Clinical Impressions Clinical Impression: Abscess of face Stand Alone Forms Stand Alone Forms: Work/School Release Instructions Patient Instructions: DI for Skin Abscess Discharge ED Provider: Micky Hollis [facility] General Stated complaint: cyst on face Mode of Arrival: Ambulatory Limitations: No Limitations Time Seen by Provider: 09/21/22 11:06 History of Present Illness Provider Complaint: PT REPORTS RED AREA TO LEFT SIDE OF FACE THAT STARTED WEDNESDAY, WOKE UP ON WEDNESDAY WITH INCREASED REDNESS, SEEN AT [facility] ED RECEIVED DOXYCYCLINE. PT REPORTS INCREASED REDNESS TODAY. HAS HAD 2 DOSES OF ABX Related Data Previous Rx's Medication Instructions Recorded amoxicillin 500 mg tablet 500 mg PO TID #30 tabs 08/31/22 cephalexin 500 mg capsule 500 mg PO QID #40 caps 09/21/22 ibuprofen 800 mg tablet (IBU) 800 mg PO Q8HP PRN Moderate Pain 09/21/22 #30 tabs mupirocin 2 % topical ointment 1 applic topical TID 7 days #15 09/21/22 grams sulfamethoxazole 800 1 tab PO BID #20 tabs 09/21/22 mg-trimethoprim 160 mg tablet (Bactrim DS) Allergies Allergy/AdvReac Type Severity Reaction Status Date / Time No Known Allergies Allergy Verified 08/31/22 14:27 [facility] Disclaimer: The information contained in this section may have been updated after the patient was seen, as this information can be updated by other users. Medical History Asthma History of anemia Kidney stone Migraine Urinary tract infection Surgical History History of section History of hysterectomy History of tonsillectomy History of tubal ligation History of tympanostomy tube placement Social History Smoking Status: Never smoker alcohol intake: never substance use type: denies use current occupational status: other Travel in the last 8 weeks: None housing: house ROS Obtained: Yes All systems reviewed & no additional complaints except as documented Constitutional Constitutional: Denies chills and Denies fever(s) Eyes Eyes: Denies eye discharge ENT Ears, Nose, Mouth, and Throat: Denies dizziness, Denies otalgia and Denies sore throat Cardiovascular Cardiovascular: Denies chest pain Respiratory Respiratory: Denies shortness of breath, Denies chest congestion, Denies cough, Denies stridor and Denies wheezing Gastrointestinal Gastrointestingal: Denies nausea or vomiting Musculoskeletal Musculoskeletal: Reports system reviewed and no additional complaints, except as documented and Denies arthralgias Integumentary/Breasts Skin/Breast: Reports as per HPI and Reports redness Neurologic Neurologic: Denies dizziness and Denies paresthesias Allergic/Immunologic Allergic/Immunologic: Denies wheezing Physical Exam General General appearance: alert a
[2022-09-21 11:12] VITALS: BP 124/87; PULSE 78; RESP 18; TEMP 37.4; O2SAT 100; BMI 28.7
[2022-09-21 11:35] VITALS: BP 124/87; PULSE 78; RESP 18; TEMP 36.6; O2SAT 99
== END 2022-09-21 11:37 | disposition home or self-care (01) ==
LOC: ER 10:55 → UTC 10:56
PROVIDERS: Emergency Provider Nurse Practitioner Family
DX: L02.01 Cutaneous abscess of face (principal)
CPT/HCPCS: 87070; 87077; 87186; 87205; 99212; 99214; G0463; J0696

== ENCOUNTER 2023-01-12 20:12 | Emergency (ER) | payer OTHER, SELFPAY ==
[2023-01-12] VITALS (7 sets, daily range): BP systolic 111–155; BP diastolic 72–95; PULSE 77–97; RESP 16–20; TEMP 36.7–36.8; O2SAT 98–100; BMI 29.5
--- NOTE | 2023-01-12 20:33 | ECG_ITS ---
APPROVED REPORT Exam: Resting ECG HR:95 bpm ECG Measurements Heart Rate 95 AXES MO 164 P 80 QRSd 94 QRS 76 QT 352 T 57 QTc 404 Conclusion SINUS RHYTHM MINIMAL ST DEPRESSION [0.025+ mV ST DEPRESSION] BORDERLINE ECG UNCONFIRMED REPORT Electronically signed by : Chris Gaxiola MD 01/14/2023 06:49:56
--- NOTE | 2023-01-12 20:43 | XR_ITS ---
PROCEDURE INFORMATION: Exam: XR Chest Exam date and time: 01/12/2023 8:47 PM Age: 42 years old Clinical indication: Condition or disease; Lung condition and disease; Asthma; Shortness of breath; Additional info: SOA, history of asthma TECHNIQUE: Imaging protocol: Radiologic exam of the chest. Views: 1 view. COMPARISON: CR XR CHEST 2V 04/14/2021 5:29 PM FINDINGS: Lungs: Unremarkable. No consolidation. Pleural spaces: Unremarkable. No pleural effusion. No pneumothorax. Heart/Mediastinum: Unremarkable. No cardiomegaly. Bones/joints: Unremarkable. IMPRESSION: No acute findings.
--- NOTE | 2023-01-12 20:52 | HMH.EDGENADL ---
Discharge Plan Disposition Patient Disposition: Home, Self-Care Condition: Good Prescriptions Prescriptions: No Action budesonide-formoterol [Symbicort] 80-4.5 mcg/actuation HFA aerosol inhaler 1 inh inhalation BID Qty: 10.2 2RF fexofenadine [Adeola Allergy] 180 mg tablet 180 mg PO DAILY Qty: 30 2RF albuterol sulfate 90 mcg/actuation HFA aerosol inhaler 1 inh inhalation QID Qty: 6.7 2RF Referrals Follow up/Referrals: Jen Villavicencio APRN [Primary Care Provider] - See instructions Chalo Knutson MD [Staff Physician] - See instructions (SOA, workup negative) Activity Restrictions/Add. Instructions Additional Instructions/Restrictions: Call your family doctor to establish care for this visit to the emergency department and schedule follow-up within 48 hours to ensure improvement. If you have any worsening of your condition or any other concerning signs or symptoms, return to the emergency department or your primary care doctor for further evaluation. Follow-up with cardiology, referral has been placed and information is here. Clinical Impressions Clinical Impression: Shortness of breath, Chest pressure Discharge ED Provider: Abel Antonio General Adult HPI General Chief complaint: Chest Pain Stated complaint: trouble breathing, chest tightness when breathing Time Seen by Provider: 01/12/23 20:17 History of Present Illness HPI narrative: This is a 42-year-old female with history of asthma, long COVID presenting with shortness of breath. Patient states that she has been having chest pressure and shortness of breath for the past week or so. Exacerbated by laying down, laying flat, exertion. Not associated with vomiting, diaphoresis, overt chest pain, or neurologic deficits. Patient states the chest pressure does not radiate, is substernal. Has not noticed anything that makes it better other than rest while not lying flat. Has tried asthma inhalers without relief. Related Data Previous Rx's Medication Instructions Recorded albuterol sulfate 90 mcg/actuation 1 inh inhalation QID #6.7 grams 01/12/23 aerosol inhaler budesonide-formoterol HFA 80 1 inh inhalation BID #10.2 grams 01/12/23 mcg-4.5 mcg/actuation aerosol inhaler (Symbicort) fexofenadine 180 mg tablet 180 mg PO DAILY #30 tabs 01/12/23 (Adeola Allergy) Allergies Allergy/AdvReac Type Severity Reaction Status Date / Time No Known Allergies Allergy Verified 01/12/23 13:54 [facility] Disclaimer: The information contained in this section may have been updated after the patient was seen, as this information can be updated by other users. Medical History Asthma History of anemia Kidney stone Migraine Urinary tract infection Surgical History History of section History of hysterectomy History of tonsillectomy History of tubal ligation History of tympanostomy tube placement Family History (Updated 01/12/23 @ 14:01 by Katherine Rust) Father Coronary artery disease Social History Smoking Status: Never smoker alcohol intake: never substance use type: denies use current occupational status: other Travel in the last 8 weeks: None housing: house ROS Obtained: Yes All systems reviewed & no additional complaints except as documented Physical Exam General General appearance: alert, in no apparent distress, anxious and other ( ) Head Head exam: atraumatic and normocephalic Eye Eye exam: Present normal appearance, PERRL and EOMI ENT ENT exam: Present mucous membranes moist Neck Neck exam: Present normal inspection, full ROM and trachea midline Respiratory Respiratory exam: Present normal lung sounds bilaterally; Absent respiratory distress, wheezes, stridor, accessory muscle use or prolonged expiratory phase Cardiovascular Cardi
[2023-01-12 20:54] LABS: Basophils # 0.1 K/mm3 (0-0.2); Basophils % 0.5 % (0.1-2.0); Eosinophils # 0.4 K/mm3 (0.0-0.4); Eosinophils % 3.2 % (0.1-12.0); Hematocrit 43.7 % (37.0-47.0); Hemoglobin 14.5 g/dL (12.2-16.2); Lymphocytes % 23.7 % (10-50); Mean Corpuscular HGB Conc 33.3 g/dL (31.8-35.4); Mean Corpuscular Volume 90.1 fl (81-99); Mean Platelet Volume 8.8 fl (7.4-10.4); Monocytes # 0.6 K/mm3 (0.1-1.0); Monocytes % 4.9 % (1.7-9.3); Neutrophils # 8.5 K/mm3 (1.8-7.8); Neutrophils % 67.7 % (37.0-80.0); Platelet Count 266 K/mm3 (142-424); Red Blood Count 4.85 M/mm3 (4.20-5.40); Red Cell Distribution Width 12.5 % (11.5-17.5); White Blood Count 12.5 K/mm3 (4.8-10.8)
[2023-01-12 20:58] LABS: Alanine Aminotransferase 25 U/L (12-78); Albumin Level 4.8 g/dl (3.5-5.0); Albumin/Globulin Ratio 1.3 (1.1-1.8); Alkaline Phosphatase 85 U/L (38-126); Anion Gap 15.5 mEq/L (5-15); Aspartate Amino Transferase 26 U/L (14-36); Bilirubin,Total 0.3 mg/dl (0.2-1.3); Blood Urea Nitrogen 12 mg/dl (7-17); Calcium 9.3 mg/dl (8.4-10.2); Carbon Dioxide 26 mmol/L (22.0-30.0); Chloride 103 mmol/L (98-107); Estimated Glomerular Filt Rate 79 ml/min (>60); GFR (African American) 96 ML/MIN (>60); Globulin 3.8 g/dL (1.3-3.2); Glucose 86 mg/dl (74-100); Potassium 3.5 mmoL/L (3.5-5.1); Sodium 141 mmol/L (136-145); Total Protein,Serum 8.6 g/dl (6.3-8.2)
[2023-01-12 21:04] LABS: D-Dimer 0.67 ug/mL (0.0-0.5)
[2023-01-12 21:04] LABS: VBG Base Excess -1.8 mmol/L (-2.4-2.3); VBG HCO3 24.1 mmol/L (23-30); VBG Oxygen Saturation 78.4 % (50-70); VBG PCO2 46.5 mmol/L (35-51); VBG PH 7.33 mmol/L (7.31-7.41); VBG Total CO2 25.6 mmol/L (23-27)
[2023-01-12 21:12] LABS: NT Pro Brain Natriuretic Pep. 63.4 pg/mL (0-125)
[2023-01-12 21:13] LABS: Troponin I < 0.01 ng/ml (0.00-0.034)
--- NOTE | 2023-01-12 21:48 | CT_ITS ---
PROCEDURE INFORMATION: Exam: CTA Chest With Contrast Exam date and time: 01/12/2023 10:18 PM Age: 42 years old Clinical indication: Abnormal findings; Abnormal diagnostic tests; Elevated d-dimer; Additional info: Dimer elecated, SOA TECHNIQUE: Imaging protocol: Computed tomographic angiography of the chest with contrast. Exam focused on the arteries. 3D rendering (Not supervised by radiologist): MIP and/or 3D reconstructed images were created by the technologist. Radiation optimization: All CT scans at this facility use at least one of these dose optimization techniques: automated exposure control; mA and/or kV adjustment per patient size (includes targeted exams where dose is matched to clinical indication); or iterative reconstruction. Contrast material: ISOVUE; Contrast volume: 70 ml; Contrast route: INTRAVENOUS (IV); REPORTING DATA: Count of CT and Cardiac NM exams in prior 12 months: This patient has received 0 known CTs and 0 known cardiac nuclear medicine studies in the 12 months prior to the current study. COMPARISON: CT ANGIO CHEST PE PROTOCOL 06/18/2021 3:32 PM FINDINGS: Pulmonary arteries: Normal. No pulmonary emboli. Aorta: Unremarkable. No aortic aneurysm. No aortic dissection. Lungs: Unremarkable. No consolidation. No masses. Pleural spaces: Unremarkable. No pneumothorax. No pleural effusion. Heart: Unremarkable. No cardiomegaly. No pericardial effusion. Lymph nodes: Unremarkable. No enlarged lymph nodes. Bones/joints: Unremarkable. No acute fracture. Soft tissues: Unremarkable. IMPRESSION: No evidence for clinically relevant pulmonary arterial filling defect, dense parenchymal consolidation, pleural effusion, or pneumothorax. No acute intrathoracic anomaly.
== END 2023-01-12 23:36 | disposition home or self-care (01) ==
PROVIDERS: Emergency Provider Emergency Medicine; PCP Nurse Practitioner Family
DX: R07.89 Other chest pain (principal); R06.02 Shortness of breath; J45.909 Unspecified asthma, uncomplicated; G43.909 Migraine, unspecified, not intractable, without status migrainosus; U09.9 Post COVID-19 condition, unspecified
CPT/HCPCS: 71045; 71275; 80053; 82803; 83880; 84484; 85025; 85378; 93005; 99285; Q9967

== ENCOUNTER 2023-01-27 07:09 | Outpatient (CLI) | payer OTHER, SELFPAY ==
[2023-01-27] VITALS (8 sets, daily range): BP systolic 105–128; BP diastolic 39–80; PULSE 50–66; RESP 16–17; TEMP 36.2; O2SAT 99–100; BMI 21.4
== END 2023-01-27 09:24 | disposition home or self-care (01) ==
PROVIDERS: PCP Nurse Practitioner Family; Visit Provider Physician Assistant
DX: R06.02 Shortness of breath (principal); R07.9 Chest pain, unspecified
CPT/HCPCS: 75574; Q9967

== ENCOUNTER → 2023-02-03 14:24 | Outpatient (CLI) | payer OTHER, SELFPAY ==
--- NOTE | 2023-02-03 14:26 | CA_ITS ---
APPROVED REPORT EXAM: Comprehensive 2D, Doppler, and color-flow Echocardiogram Children[facility] Nursery Assistant: Yue Uriarte RVT Ht: 5 ft 3 in Wt: 165lbs BSA: 1.78 BP: 124/73 mmHg Indications: SOA,DIZZINESS 2D Dimensions LVOT 2.00 cm (M/F) 1.5-2.5 LA Volume 23.60 mL LA Volume Index 13.26 mL/m2 (M/F) 16-34 M-Mode Dimensions RVDd 1.69 cm (0.9-2.6) LA Diam 2.73 cm (1.9-4.0) LVDd 4.32 cm (3.5-5.7) Ao Diam 2.67 cm (2.0-3.7) LVDs 2.88 cm (3.5-5.7) IVSd 0.75 cm (0.6-1.1) PWd 0.53 cm (0.6-1.1) EF (Teich) 62.30% FS 33.30% EDV (Teich) 84.00 mL TAPSE 3.26 (<1.7) ESV (Teich) 31.70 mL LV Diastology E Decel Time 220.00 (160-240 msec) E/A Ratio 1.4 MED E' 9.40 (< 7 cm/sec) E'/MED E' Ratio 10.05 (>14) LAT E' 16.90 (<10 cm/sec) E/LAT E' Ratio 5.59 (>14) Aortic Valve AO Peak GR. 5.40 mmHg Mitral Valve MV E Max Julito. 95.00 (40-130 cm/s) MV A Velocity 67.00 (40-130 cm/s) E/A Ratio 1.41 MV Decel. Time 220.00 (160-240 ms) MV PHT 64.00 ms Pulmonary Valve PV Peak Velocity 87.00 (50-150 cm/s) Tricuspid Valve TR P. Velocity 227.00 cm/s RAP Estimate 10.00 mmHg RVSP 30.70 mmHg Left Ventricle The left ventricle is normal size. The left ventricular systolic function is normal. The left ventricular ejection fraction is within the normal range. There is normal left ventricular wall thickness. There is normal LV segmental wall motion. The left ventricular diastolic function is normal. LVEF is 55%. Right Ventricle The right ventricle is normal size. The right ventricular systolic function is normal. Atria The left atrium size is normal. The right atrium size is normal. There is no Doppler evidence of interatrial shunt. Aortic Valve The aortic valve opens well. There is no aortic valvular stenosis. No aortic regurgitation is present. Mitral Valve The mitral valve is normal in structure. No evidence of mitral valve stenosis. Trace mitral regurgitation. Tricuspid Valve The tricuspid valve leaflets are thin and pliable. Trace tricuspid regurgitation. RVSP is normal. Pulmonic Valve The pulmonary valve is normal in structure. Mild pulmonic regurgitation. Great Vessels The aortic root is normal in size. The ascending aorta is normal in size. IVC is normal in size and collapses >50% with inspiration. Pericardium There is no pericardial effusion. Other Information Study Quality: Adequate Conclusion Normal biventricular systolic function. No significant valvular disease. Electronically signed by : Christel Georges, 02/08/2023 11:44:37
== END ==
PROVIDERS: PCP Nurse Practitioner Family; Visit Provider Nurse Practitioner Family
DX: R07.9 Chest pain, unspecified (principal); R42 Dizziness and giddiness
CPT/HCPCS: 93306

== ENCOUNTER 2024-06-08 14:09 | Emergency (ER) | payer SELFPAY ==
--- NOTE | 2024-06-08 14:24 | EXP.UTC ---
Discharge Plan Disposition Patient Disposition: Home, Self-Care Condition: Good Prescriptions Prescriptions: New benzonatate 100 mg capsule 100 mg PO TIDP PRN (Reason: Cough) Qty: 30 0RF methylprednisolone 4 mg Tablets,Dose Pack 4 mg PO DIRECTED 6 Days Qty: 21 0RF Rx Instructions: Take 1 pack as directed for 6 days ondansetron 4 mg Tablet,Disintegrating 4 mg PO Q8H PRN (Reason: Nausea) Qty: 12 0RF No Action ipratropium-albuterol 0.5 mg-3 mg(2.5 mg base)/3 mL solution for nebulization 3 ml inhalation Q6H PRN (Reason: shortness of breath or wheezing) Qty: 90 3RF fexofenadine [Adeola Allergy] 180 mg tablet 180 mg PO DAILY Referrals Follow up/Referrals: Kennedy Huitron MD [Primary Care Provider] - See instructions Activity Restrictions/Add. Instructions Additional Instructions/Restrictions: Drink plenty of fluids. Take tylenol or ibuprofen for pain or fever. Take the medications as directed. Follow up with your regular doctor. GO TO THE ER FOR ANY WORSENING SYMPTOMS Clinical Impressions Clinical Impression: Acute viral syndrome, Asthma exacerbation Stand Alone Forms Stand Alone Forms: Work/School Release Instructions Patient Instructions: Asthma -- Adult, Methylprednisolone Print Language Print Language: Ghanaian Discharge ED Provider: Micky Hollis [facility] General Stated complaint: H/A, runny nose, congestion, cough Time Seen by Provider: 06/08/24 14:24 History of Present Illness Provider Complaint: She states that for the past 2 days she has had chest congestion, low grade fever, and malaise. She has a history of asthma. Related Data Home Medications ?Medication ?Instructions ?Recorded ?Confirmed fexofenadine 180 mg tablet 180 mg PO DAILY Allergy Symptoms 01/27/23 09/09/23 (Adeola Allergy) Previous Rx's ?Medication ?Instructions ?Recorded ipratropium 0.5 mg-albuterol 3 mg 3 ml inhalation Q6H PRN shortness 08/19/23 (2.5 mg base)/3 mL nebulization of breath or wheezing #90 mL soln benzonatate 100 mg capsule 100 mg PO TIDP PRN Cough #30 caps 06/08/24 methylprednisolone 4 mg tablets in 4 mg PO DIRECTED 6 days #21 tabs 06/08/24 a dose pack ondansetron 4 mg disintegrating 4 mg PO Q8H PRN Nausea #12 tabs 06/08/24 tablet Allergies Allergy/AdvReac Type Severity Reaction Status Date / Time No Known Allergies Allergy Verified 09/09/23 16:04 [facility] Disclaimer: The information contained in this section may have been updated after the patient was seen, as this information can be updated by other users. Medical History Dyspnea on exertion History of anemia Urinary tract infection Kidney stone Migraine Asthma Surgical History History of tympanostomy tube placement History of tubal ligation History of tonsillectomy History of hysterectomy History of section Family History Father Coronary artery disease Social History Smoking Status: Never smoker alcohol intake: never substance use type: denies use current occupational status: other Travel in the last 8 weeks: None housing: house Have you lived/traveled outside [place] in past 30 days?: No Contact w/someone who lives/traveled outside US past 30 days?: No Exposure to someone with infectious disease in past 14 days?: No Do you have a fever (greater than 100.4 F or 38 C)?: No Have you tested positive for COVID-19: No Exposed to someone with COVID-19 in past 14 days?: No Do you have a sore throat?: No Do you have a cough?: Yes Do you have any weakness?: No Do you have any diarrhea?: No Are you experiencing any unusual bleeding?: No Do you have any muscle aches/pain?: Yes Do you have any abdominal pain?: No Are you experiencing loss of taste or smell?: No ROS Obtained: Yes All systems reviewed & no additional complaints except as documented Constitutional Constitutional: Reports chills and Reports fever(s) Eyes Eyes: Denies eye discharge ENT Ears, Nose, Mouth, and Throat: Reports as per HPI Cardiovascular Cardiovascular: Denies chest pain Respiratory Respiratory: Denies chest congestion and Reports cough Gastrointestinal Gastrointestingal: Reports nausea; Denies abdominal pain, constipation, cramping, diarrhea or vomiting Musculoskeletal Musculoskeletal: Denies arthralgias Integumentary/Breasts Skin/Breast: Denies rash Neurologic Neurologic: Denies paresthesias Physical Exam General General appearance: alert and in no apparent distress Eye Eye exam: Present normal appearance, PERRL and EOMI ENT ENT exam: Present mucous membranes moist and normal external ear exam Expanded ENT Exam External ear exam: Present normal external inspection TM/Canal exam: Bilateral TM: erythema and bulging Nose exam: Absent sinus tenderness Nasal speculum exam: Bilateral: normal Mouth exam: Present normal external inspection; Absent drooling Teeth exam: Present normal inspection Throat exam: Present tonsillar erythema and tonsillomegaly Neck Neck exam: Present normal inspection, full ROM and trachea midline; Absent tenderness, lymphadenopathy or thyromegaly Chest Chest inspection: Present normal inspection and symmetric chest wall rise; Absent tenderness or rash Respiratory Respiratory exam: Present normal lung sounds bilaterally; Absent respiratory distress, wheezes, stridor or accessory muscle use Cardiovascular Cardiovascular exam: Present regular rate, normal rhythm and normal heart sounds Abdominal Exam Abdominal exam: Present soft; Absent distention, tenderness, guarding, rebound or rigidity Extremities Exam Extremities exam: Present normal inspection, full ROM and normal capillary refill; Absent tenderness or calf tenderness Back Exam Back exam: Present normal inspection and full ROM; Absent tenderness Neurological Exam Neurological exam: Present alert and oriented X3 Psychiatric Psychiatric exam: Present normal affect and normal mood Skin Skin exam: Present warm, dry, intact and normal color Lymphatic Lymphatic Findings: no adenopathy Medical Decision Making Medical Records Medical records reviewed: No I reviewed the patient's medical records. Screening: Per USPSTF and CDC recommendations, given the prevalence of disease in our region, it is our hospital?s policy to screen for HIV and viral Hepatitis for all patients aged 18 and over and those with ongoing risk factors. [place] Inquiry Pt receiving controlled substance: No Lab Data Lab results reviewed: Yes I reviewed the patient's lab results.
[2024-06-08 14:34] VITALS: BP 146/76; PULSE 95; RESP 18; TEMP 36.8; O2SAT 99; BMI 30.8
[2024-06-08 14:56] LABS: UTC Influenza A Antigen Negative (Negative); UTC Influenza B Antigen Negative (Negative)
[2024-06-08 14:58] LABS: UTC Strep Screen (Rapid) Negative (Negative)
[2024-06-08 15:29] VITALS: BP 146/76; PULSE 95; RESP 18; TEMP 36.8
[2024-06-08 15:43] LABS: Coronavirus 19, PCR Not Detected (NotDetected); Influenza A, PCR Not Detected (NotDetected); Influenza B, PCR Not Detected (NotDetected)
== END 2024-06-08 15:48 | disposition home or self-care (01) ==
PROVIDERS: Emergency Provider Nurse Practitioner Family; PCP Family Medicine
DX: J45.909 Unspecified asthma, uncomplicated (principal); B34.9 Viral infection, unspecified
CPT/HCPCS: 87636; 87804; 87880; 99213; G0381

== ENCOUNTER 2024-06-25 10:20 | Emergency (ER) | payer SELFPAY ==
[2024-06-25 11:10] VITALS: BP 131/83; PULSE 102; RESP 20; TEMP 36.9; O2SAT 98; BMI 27.9
[2024-06-25 11:33] LABS: UTC Strep Screen (Rapid) Negative (Negative)
--- NOTE | 2024-06-25 11:34 | ED_ITS ---
Discharge Plan Disposition Patient Disposition: Home, Self-Care Condition: Good Prescriptions Prescriptions: New [id number]-qddaynocs-[place] [Bromfed DM] 2-30-10 mg/5 mL syrup 10 ml PO Q6H PRN (Reason: cold symptoms) Qty: 200 0RF ondansetron 4 mg tablet,disintegrating 4 mg PO Q8H PRN (Reason: nausea and vomiting) Qty: 10 0RF Referrals Follow up/Referrals: Kennedy Huitron MD [Primary Care Provider] - See instructions Activity Restrictions/Add. Instructions Additional Instructions/Restrictions: *Monitor Temp, Over the counter Motrin or Tylenol as directed/as needed Tylenol every 4 hours and Motrin every 6 hours (as long as your family doctor has told you that you can take it) for fever or pain. and straight to ER if unable to lower temp less than 101.0 after medication given *Warm salt water gargles may help to soothe the throat *Throat Lozenges? *Warm fluids like tea with honey may help to soothe the throat? *Sleep elevated *Humidifier/Vaporizer *Flonase 2 sprays in each nostril daily but be aware that it may take 2-3 days before you notice improvement *Bromfed may cause drowsiness. Know how it effects you (your child) before driving, caring for small child, or sending your child to school. Not other antihistamines/allergy medications while taking bromfed Your throat swab was sent for culture. Those results are typically sent to your primary care. Be sure to follow up in 2-3 days with your family doctor/primary care physician if no improvement so they can review those result and treat if necessary. ?If you don?t have a primary care doctor, I recommend you get one but in the mean time, you will have to return to a walk in clinic Follow up IMMEDIATELY for new or worsening symptoms or no Noticeable improvement over the next 48-72 hours. 911 for difficulty breathing or swallowing You were tested for today for Rapid COVID19, and Influenza A&B, your test result should be back in the next few hours, you may check your results on the [facility] Clinical Impressions Clinical Impression: Viral upper respiratory illness Instructions Patient Instructions: Nausea and Vomiting-Adult, DI for Viral Upper Respiratory Infection -- Adult Print Language Print Language: Amharic Discharge ED Provider: Nataliya Sinha [facility] [place] General Stated complaint: cough, sore throat, headache Mode of Arrival: Ambulatory Source of Information: Patient Limitations: No Limitations Time Seen by Provider: 06/25/24 11:34 Description of Symptoms (Recalled from Triage Doc. by RN): PATIENT C/O COUGH, CONGESTION, SORE THROAT, HEADACHE, RUNNY NOSE, AND VOMITING (THIS MORNING) SINCE YESTERDAY HEENT Symptoms (Recalled from RN notes): Yes Resp Symptoms (Recalled from RN notes): Yes Skin Symptoms (Recalled from RN notes): No MS Symptoms (Recalled from RN notes): No Functional Status (Recalled from RN notes): WNL History of Present Illness Provider Complaint: Patient states that she was recently exposed to COVID and strep throat and now having some symptoms wanting to get tested States that she has been having N/V, body aches, chills, headache and scratchy throat Related Data Previous Rx's ?Medication ?Instructions ?Recorded xijhxjlwiexgrir-ophrwsyizrivxxc-EG 10 ml PO Q6H PRN cold symptoms 06/25/24 2 mg-30 mg-10 mg/5 mL oral syrup #200 mL (Bromfed DM) ondansetron 4 mg disintegrating 4 mg PO Q8H PRN nausea and 06/25/24 tablet vomiting #10 tabs Allergies Allergy/AdvReac Type Severity Reaction Status Date / Time No Known Allergies Allergy Verified 09/09/23 16:04 Worker's Comp Is this a Worker's Comp case?: No [facility] Disclaimer: The information contained in this section may have been updated after the patient was seen, as this information can be updated by other users. Medical History Dyspnea on exertion History of anemia Urinary tract infection Kidney stone Migraine Asthma Surgical History History of tympanostomy tube placement History of tubal ligation History of tonsillectomy History of hysterectomy History of section Family History Father Coronary artery disease Social History Smoking Status: Never smoker alcohol intake: never substance use type: denies use current occupational status: other Travel in the last 8 weeks: None housing: house Have you lived/traveled outside US in past 30 days?: No Contact w/someone who lives/traveled outside US past 30 days?: No Exposure to someone with infectious disease in past 14 days?: No Do you have a fever (greater than 100.4 F or 38 C)?: No Have you tested positive for COVID-19: No Exposed to someone with COVID-19 in past 14 days?: No Do you have a sore throat?: Yes Do you have a cough?: Yes Do you have any weakness?: No Do you have any diarrhea?: No Are you experiencing any unusual bleeding?: No Do you have any muscle aches/pain?: No Do you have any abdominal pain?: No Are you experiencing loss of taste or smell?: No ROS Obtained: Yes All systems reviewed & no additional complaints except as documented and Yes Systems reviewed as appropriate & no additional complaints except as documented Constitutional Constitutional: Reports system reviewed and no additional complaints, except as documented, Reports as per HPI, Reports body ache, Reports chills, Denies fever(s) and Reports headache(s) ENT Ears, Nose, Mouth, and Throat: Reports system reviewed and no additional complaints, except as documented, Reports as per HPI, Reports headache(s), Reports nasal congestion and Reports sore throat Cardiovascular Cardiovascular: Reports system reviewed and no additional complaints, except as documented and Reports as per HPI Respiratory Respiratory: Reports system reviewed and no additional complaints, except as documented and Reports as per HPI Gastrointestinal Gastrointestingal: Reports system reviewed and no additional complaints, except as documented, as per HPI, nausea and vomiting Neurologic Neurologic: Reports headache(s) Physical Exam General General appearance: alert and in no apparent distress ENT ENT exam: Present mucous membranes moist Expanded ENT Exam Nose exam: Absent sinus tenderness Throat exam: Present other (mild pharyngeal erythema noted) Respiratory Respiratory exam: Present normal lung sounds bilaterally; Absent respiratory distress or wheezes Cardiovascular Cardiovascular exam: Present regular rate, normal rhythm and normal heart sounds Abdominal Exam Abdominal exam: Present soft and normal bowel sounds; Absent distention or tenderness Neurological Exam Neurological exam: Present alert, oriented X3 and normal gait Medical Decision Making Medical Records Screening: Per USPSTF and CDC recommendations, given the prevalence of disease in our region, it is our hospital?s policy to screen for HIV and viral Hepatitis for all patients aged 18 and over and those with ongoing risk factors. [place] Inquiry Pt receiving controlled substance: No [place] was queried for this patient: No Vital Signs: 06/25/24 11:10 Temperature 98.5 F Temperature Source Oral Pulse Rate [Right Brachial] 102 H Respiratory Rate 20 Blood Pressure [Right Arm] 131/83 Blood Pressure Mean [Right Arm] 99 Blood Pressure Source [Right Arm] Automatic Cuff Blood Pressure Position [Right Arm] Sitting 02 Sat by Pulse Oximetry 98 Oxygen Delivery Method Room Air Lab Data Lab results reviewed: Yes I reviewed the patient's lab results. Lab Results 06/25/24 11:15: Strep Scn Rapid Clinic Negative Orders (Tests/Meds): ORDERS Category Date Time Status Rapid PCR Covid and Flu A/B Stat Lab 06/25/24 11:15 Ordered Strep Screen Confirmation Stat Micro 06/25/24 11:15 Received
[2024-06-25 11:38] VITALS: BP 131/83; PULSE 102; RESP 20; TEMP 36.9; O2SAT 98
[2024-06-25 12:06] LABS: Coronavirus 19, PCR Not Detected (NotDetected); Influenza A, PCR Not Detected (NotDetected); Influenza B, PCR Not Detected (NotDetected)
== END 2024-06-25 11:51 | disposition home or self-care (01) ==
PROVIDERS: Emergency Provider Nurse Practitioner; PCP Family Medicine
DX: J06.9 Acute upper respiratory infection, unspecified (principal); Z20.822 Contact with and (suspected) exposure to COVID-19; Z20.818 Contact with and (suspected) exposure to other bacterial communicable diseases
CPT/HCPCS: 87636; 87880; 99212; G0381

== ENCOUNTER 2025-02-14 11:54 | Emergency (ER) | payer OTHER, SELFPAY ==
[2025-02-14 11:59] VITALS: BP 142/92; PULSE 87; RESP 16; TEMP 36.9; O2SAT 100; BMI 28.3
--- NOTE | 2025-02-14 12:08 | CT_ITS ---
FINAL REPORT TECHNIQUE: Axial imaging of the head was obtained without contrast. This study was performed with techniques to keep radiation doses as low as reasonably achievable, (ALARA). Individualized dose reduction techniques using automated exposure control or adjustment of mA and/or kV according to the patient''s size were employed. CLINICAL HISTORY: Left mormonism abscess, eye pain/swelling FINDINGS: The ventricles are normal in size. There is no evidence of hemorrhage. No masses are identified. No extra-axial fluid is seen. The sinuses are normal. There is no acute osseous abnormality. There is soft tissue edema of the left temporal scalp with overlying skin thickening. There is an 8 mm subcutaneous nodule. No discrete fluid collection is seen. IMPRESSION: No acute intracranial abnormality. Left temporal scalp soft tissue edema with overlying skin thickening and soft tissue nodule which could be infectious or inflammatory. Reviewed, Interpreted and Dictated by Medina Graves MD Transcribed by Brenda Mauro Authenticated and [facility]
--- NOTE | 2025-02-14 12:08 | CT_ITS ---
FINAL REPORT TECHNIQUE: Axial imaging of the orbits was obtained after the intravenous administration of contrast. Reformatted images were also obtained and reviewed. This study was performed with techniques to keep radiation doses as low as reasonably achievable (ALARA). Individualized dose reduction techniques using automated exposure control or adjustment of mA and/or kV according to the patient's size were employed. CLINICAL HISTORY: left faith abscess, eye pain/swelling FINDINGS: There are small intraparotid lymph nodes within the left parotid gland. There is soft tissue edema involving the left temporalis muscle with overlying abnormal attenuation within the subcutaneous fat and overlying skin thickening, favor infectious/inflammatory. There is mild left periorbital soft tissue edema. There is no extension posterior to the left orbit. Nasopharynx is unremarkable. There is debris in the left external auditory canal. Mucoperiosteal thickening is seen of the left frontal sinus and left greater than right maxillary sinuses. No air-fluid levels are identified. There is no peripherally enhancing fluid collection. IMPRESSION: 1. Findings of left facial cellulitis involving the left temporalis muscle, overlying soft tissues and left periorbital soft tissues. No abscess identified. 2. Findings of chronic sinusitis. Reviewed, Interpreted and Dictated by Medina Graves MD Transcribed by Brenda Mauro Authenticated and [facility]
--- NOTE | 2025-02-14 12:10 | HMH.EDGENADL ---
Discharge Plan Disposition Patient Disposition: Home, Self-Care Prescriptions Prescriptions: No Action sulfamethoxazole-trimethoprim 800-160 mg tablet 1 tab PO BID Qty: 20 0RF Referrals Follow up/Referrals: Kennedy Huitron MD [Primary Care Provider, Internal Medicine] - See instructions Activity Restrictions/Add. Instructions Additional Instructions/Restrictions: Continue taking your antibiotic as prescribed. This is a good antibiotic to treat MRSA infections. Follow-up with your primary care physician next week to make sure the infection is improving. If you develop any new or worsening symptoms over the weekend, such as fever, vision changes, worsening pain with eye movement, difficulty moving your eye, or if you become concerned for your health for any reason, return to the emergency department for evaluation. Clinical Impressions Clinical Impression: Cellulitis Print Language Print Language: Occitan Discharge ED Provider: Luke Rizzo Adult HPI General Chief complaint: Eye Problems Stated complaint: bite on left side of face, Lt eye swelling, pain Time Seen by Provider: 02/14/25 12:04 Mode of Arrival: Ambulatory Source of Information: Patient Description of Symptoms (Recalled from ER Triage Doc. by RN): patient presents to the ED for am infected bite that has gotten significantly swollen over the last 24 hours. the bite is on the patients left side of her head, swelling into her left eye causing blurry vision. patient stated she went tot he doctor adn was prescribed antibiotics yesterday but the swelling has worsened since she started. History of Present Illness HPI narrative: Theresa De La Cruz is a 44-year-old female with a history of MRSA skin infections who presents to the emergency department for complaints of left eye pain and swelling and infection to the left side of her head. Patient states that 5 days ago, she thinks she got a bug bite to her left scientology and it swollen up. She started taking Keflex from a previous infection without improvement of her symptoms. She was seen by her PCP yesterday who put her on Bactrim but was told if it did not start to improve over the next 24 hours that she needed to come to the emergency department. She states that she woke up this morning and she had significant swelling to her her left lateral eye to where she can barely open her eye. She also has some pain with leftward and upward eye gaze in the left eye. Related Data Previous Rx's ?Medication ?Instructions ?Recorded sulfamethoxazole 800 1 tab PO BID #20 tabs 02/13/25 mg-trimethoprim 160 mg tablet Allergies Allergy/AdvReac Type Severity Reaction Status Date / Time No Known Allergies Allergy Verified 02/13/25 10:42 [facility] Disclaimer: The information contained in this section may have been updated after the patient was seen, as this information can be updated by other users. Medical History Dyspnea on exertion History of anemia Urinary tract infection Kidney stone Migraine Asthma Surgical History History of tympanostomy tube placement History of tubal ligation History of tonsillectomy History of hysterectomy History of section Family History Father Coronary artery disease Social History Smoking Status: Never smoker alcohol intake: never substance use type: denies use current occupational status: other Travel in the last 8 weeks?: None housing: house Have you lived/traveled outside US in past 30 days?: No Contact w/someone who lives/traveled outside US past 30 days?: No Exposure to someone with infectious disease in past 14 days?: No Do you have a fever (greater than 100.4 F or 38 C)?: No Have you tested positive for COVID-19?: No Exposed to someone with COVID-19 in past 14 days?: No Do you have a sore throat?: No Do you have a cough?: No Do you have any weakness?: No Do you have any diarrhea?: No Are you experiencing any unusual bleeding?: No Do you have any muscle aches/pain?: No Do you have any abdominal pain?: No Are you experiencing loss of taste or smell?: No Other Medical History Have you received the Flu Vaccine for this season: No Have you received the Pneumonia Vaccine: No ROS Obtained: Yes Systems reviewed as appropriate & no additional complaints except as documented Physical Exam General General appearance: alert and in no apparent distress Head Head exam: atraumatic Expanded Head Exam Head image:  1. 2 cm diameter area of swelling and erythema and tenderness Eye Eye exam: Present normal appearance, PERRL, EOMI (Pain in the left eye with leftward gaze and upward gaze), periorbital swelling (Left) and periorbital tenderness (Left); Absent conjunctival redness ENT ENT exam: Present normal external ear exam Neck Neck exam: Present full ROM Chest Chest inspection: Present symmetric chest wall rise Respiratory Respiratory exam: Present normal lung sounds bilaterally; Absent respiratory distress Cardiovascular Cardiovascular exam: Present regular rate and normal rhythm Abdominal Exam Abdominal exam: Absent distention Extremities Exam Extremities exam: Present normal inspection Back Exam Back exam: Present normal inspection Neurological Exam Neurological exam: Present alert and oriented X3 Psychiatric Psychiatric exam: Present normal affect Skin Skin exam: Present warm and dry Medical Decision Making Medical Records Screening: Per USPSTF and CDC recommendations, given the prevalence of disease in our region, it is our hospital?s policy to screen for HIV and viral Hepatitis for all patients aged 18 and over and those with ongoing risk factors. [place] Inquiry Pt receiving controlled substance: No Vital Signs: 02/14/25 11:59 02/14/25 15:01 Temperature 98.4 F 98.2 F Temperature Source Temporal Artery Scan Temporal Artery Scan Pulse Rate 73 Pulse Rate [Right Radial] 87 Respiratory Rate 16 16 Blood Pressure 112/72 Blood Pressure [Right Arm] 142/92 H Blood Pressure Mean [Right Arm] 108 Blood Pressure Source Automatic Cuff Blood Pressure Source [Right Arm] Automatic Cuff Blood Pressure Position Sitting Blood Pressure Position [Right Arm] Sitting 02 Sat by Pulse Oximetry 100 Oxygen Delivery Method Room Air Room Air Lab Data Lab Results 02/14/25 12:23: WBC 10.5, RBC 4.50, Hgb 13.8, Hct 40.8, MCV 90.7, MCH 30.7, MCHC 33.8, RDW 12.2, Plt Count 285, MPV 10.6 H, Neut % (Auto) 66.9, Lymph % (Auto) 23.3, [place] % (Auto) 5.6, Eos % (Auto) 3.1, Baso % (Auto) 0.7, Neut # (Auto) 7.0, Lymph # (Auto) 2.5, [place] # (Auto) 0.6, Eos # (Auto) 0.3, Baso # (Auto) 0.1, PT 10.6, INR 0.95, APTT 21.7 L, Sodium 138, Potassium 4.0, Chloride 104, Carbon Dioxide 25, Anion Gap 13.0, BUN 12, Creatinine 0.70, Estimated Creat Clear 120, Estimated GFR 92, Est GFR ( Amer) 111, Glucose 89, Calcium 9.5, C-Reactive Protein 5.6 H, Serum HCG, Qual Negative 02/14/25 12:23 02/14/25 12:23 Orders (Tests/Meds): ED MEDICATIONS Discontinued Medications Generic Name Dose Route Start Last Admin Trade Name Timothy PRN Reason Stop Dose Admin Acetaminophen 1,000 mg 02/14/25 12:08 02/14/25 12:27 Acetaminophen 500mg Tab PO 02/14/25 12:09 1,000 mg ONCE ONE Administration Iopamidol 75 ml 02/14/25 12:42 02/14/25 12:44 Iopamidol-370 (76%);100ml Bottle IV 02/14/25 12:43 75 ml ONCE ONE Administration Ketorolac Tromethamine 15 mg 02/14/25 12:08 02/14/25 12:27 Ketorolac 15mg/Ml Vial IV 02/14/25 12:09 15 mg ONCE ONE Administration Sodium Chloride 10 ml 02/14/25 12:42 02/14/25 12:44 Sodium Chloride 0.9% 10ml Syr (Rad Only) IV 02/14/25 12:43 10 ml ONCE ONE Administration ORDERS Category Date Time Status CT head/brain wo con Stat Cat Scan 02/14/25 12:[address] orbit BI w con Stat Cat Scan 02/14/25 12:08 Completed BMP [Basic Metabolic Panel] Stat Lab 02/14/25 12:23 Completed CBC w/Auto Diff [Complete Blood Count Auto Diff] Stat Lab 02/14/25 12:23 Completed CRP [C-Reactive Protein] Stat Lab 02/14/25 12:23 Completed PT INR [Prothrombin Time INR] Stat Lab 02/14/25 12:23 Completed PTT [Activated Partial Thrombo Time] Stat Lab 02/14/25 12:23 Completed Serum [HCG Qualitative, Serum] Stat Lab 02/14/25 12:23 Completed Medical Decision Narrative: Theresa De La Cruz is a 44-year-old female with a history of MRSA skin infections who presents to the emergency department for complaints of left eye pain and swelling and infection to the left side of her head. Patient states that 5 days ago, she thinks she got a bug bite to her left scientology and it swollen up. She started taking Keflex from a previous infection without improvement of her symptoms. She was seen by her PCP yesterday who put her on Bactrim but was told if it did not start to improve over the next 24 hours that she needed to come to the emergency department. She states that she woke up this morning and she had significant swelling to her her left lateral eye to where she can barely open her eye. She also has some pain with leftward and upward eye gaze in the left eye. On arrival, patient is mildly hypertensive blood pressure 142/92, heart rate within normal limits, afebrile, oxygen saturation 100 send SpO2. Physical exam, stated above, revealed an overall nontoxic-appearing female in no distress. She is alert and answering questions appropriately. She has a 2 cm diameter area of swelling and erythema and tenderness to the left scientology region. Left periorbital area is swollen with some tenderness. She has pain in the left eye with leftward and upward gaze. No proptosis. Pupils equal round and reactive to light. Extraocular muscles are intact. Differential diagnosis includes, but is not limited to: Orbital cellulitis, preseptal cellulitis, abscess, MRSA skin infection, among others. The most morbid conditions were considered and workup was based on these. Workup in the emergency department clued: CBC with differential, CMP, CRP, PT/INR, PTT, CT head without contrast, CT orbits with IV contrast Laboratory studies are unremarkable except for mildly elevated CRP. CT imaging was interpreted by me personally. No intracranial mass, hemorrhage, abscess is appreciated. CT orbits shows no retrobulbar findings, no abscesses. There is left temporal cellulitis. See radiology report for details. Given these findings, felt the patient is on appropriate antibiotic therapy (Bactrim). She states that she is on a 7-day course. I encouraged her to take the antibiotics as prescribed and to follow-up with her primary care physician early next week to ensure resolving infection. I did give her strict return precautions for any evidence of possible septal cellulitis with worsening pain with eye movement, fever, inability to move her eye appropriately, vision changes. All questions were answered. She demonstrated understanding and was in agreement this plan. She was then discharged from the emergency department in stable condition. Critical Care Critical Care Time Critical Care Time: No
--- OUTSIDE RECORDS SUMMARY | 2025-02-14 12:25 | XMS_ITS | Clinical Summary ---
Author Organization [facility] Address [address] [place] [address] Care Team Providers Care Petroleum Laboratory Technician Name Role Phone Jen Villavicencio Primary Care Provider Un available Allergies No known active allergies Medications dicyclomine (Bentyl) 20 MG tablet Take 1 tablet (20 mg) by mouth 3 (three) times a day as needed (abdominal cramping) for up to 21 doses. 21 tablet 07/14/2024 Active Social History Tobacco Use Types Packs/Day Years Used Date Smoking Tobacco: Never Assessed Comments Unknown Sex and Gender Information Value Date Recorded Sex Assigned at Female 07/13/2024 9:28 PM EST Legal Sex Female 8:05 PM EDT Gender Identity Not on file Sexual Orientation Not on file Last Filed Vital Signs Vital Sign Reading Time Taken Comments Blood Pressure 118/78 07/14/2024 3:08 AM EST Pulse 66 07/14/2024 3:08 AM EST Temperature 36.4 C (97.5 F) 07/14/2024 3:08 AM EST Respiratory Rate 16 07/14/2024 3:08 AM EST Oxygen Saturation 100% 07/14/2024 3:08 AM EST Inhaled Oxygen Concentration - - Weight 64.5 kg (142 lb 3.9 oz) 02/13/2013 1:34 P M EDT Height 157.5 cm (5' 2 ) 02/13/2013 1:34 PM EDT Body Mass Index 26.02 02/13/2013 1:34 PM EDT Plan of Treatment Health Maintenance Due Date Last Done Comments [facility]-Depression Screening 1980 [facility]-/Child/Adol SDOH Screenings 1982 [facility]-Varicella Vaccines (1 of 2 - 13+ 2-dose series) 11/08/1995 [facility]- SDOH Screenings 2000 [facility]-Adult SDOH Screenings 2000 [facility]-DTaP,Tdap,and Td Vaccine s (1 - Tdap) 2001 [facility]-Hepatitis B Vaccines (1 of 3 - 19+ 3-dose series) 2001 [facility]-Pap Smear 07/15/2007 07/15/2004 HPV Vaccines (1 - 3-dose SCD M series) 2009 [facility]-Cervical Cancer Screening 2012 [facility]-HPV/Cotest 2012 07/15/2004 [id number]-[id number] Vaccine (1 - 20 24-25 season) 2025 [facility]-Influenza Vaccine (#1) 2025 [facility]-Zoster Vaccines (1 of 2) 2032 [facility]-HIV Screening Completed 07/13/2024 [facility]-Hepatitis C Screening Completed 07/13/2024 [facility]-HIB Vaccines Aged Out No longer e ligible based on patient's age to complete this topic [facility]-Hepatitis A Vaccines Aged Out No longer eligible based on patient's age to complete this topic [facility]-IPV Vaccines Aged Out No longer e ligible based on patient's age to complete this topic [facility]-Pneumococcal Vaccine: Pediatrics (0 to 5 Years) and At-Risk Patients (6 to 49 Years) Aged Out No long er eligible based on patient's age to complete this topic [facility]-Rotavirus Vaccines Aged Out No lo nger eligible based on patient's age to complete this topic Procedures Procedure Name Priority Date/Time Associated Diagnosis Comments HEPATITIS C ANTIBODY - ED W/REFLEX TO HCV QUANT PCR STAT 07/13/2024 8:41 PM EST ED HIV 1/2 ANTIBODY/ANTIGEN SCREEN WITH REFLEX TO HIV I/II DIFFERENTIATION STAT 07/13/2024 8:41 PM EST CYTO DATA CONVERSION Routine 07/15/2004 12:00 AM EST from Last 3 Months or Most Recently Relevant to Health Maintenance Results * ED HIV 1/2 Antibody/Antigen Screen w/Reflex to HIV 1/2 Differentiation (07/13/2024 8:41 PM EST) HIV 1 & 2 Antibody/Antigen Screen Non Reactive Non Reactive 07/13/2024 10:07 PM EST [facility] Comment:Screening for HIV 1 & 2 antibodies, and P24 antigen is NONREACTIVE. No confirmatory testing is required. Blood Venous blood specimen / Unknown Venipuncture / Unknown 07/13/2024 8:41 PM EST 07/13/2024 9:25 PM EST us Jose Maria Elias MD LAB BLOOD ORDERABLES Final Resul t Performing Organization Address City/[facility]/[place] [address] * Hepatitis C Antibody - ED (07/13/2024 8:41 PM EST) Hepatitis C Antibody Negative Negative 07/13/2024 10:05 PM EST [facility] Blood Venous blood specimen / Unknown Venipuncture / Unknown 07/13/2024 8:41 PM EST 07/13/2024 9:25 PM EST us Jose Maria Elias MD LAB BLOOD ORDERABLES Final Resul t Performing Organization Address City/[facility] [place] [address] * (ABNORMAL) Cytology (07/15/2004 12:00 AM EST) 07/15/2004 07/16/2004 11: 44 AM EST Narrative [facility]QUEST - 07/23/2004 10:07 AM EST [facility] MR #: [id number] [facility] [address] [place], [place] [address] 1980 (Age: 23) FW Collect Date: 07/15/2004 00:00 Receipt Date: 07/16/2004 11:44 Page 1 DEPARTMENT OF PATHOLOGY AND LABORATORY MEDICINE CYTOPATHOLOGY REPORT Email: [email or web address] [email or web address] ATTENDING MD/Practitioner: Cherie Arguello MD Service: [facility] Location: [facility] MD(S): Ysabel Melissa MD Reported: 07/23/2004 10:07 Collected: 07/15/2004 00:00 INTERPRETATION THIN PREP (CERVICAL/VAGINAL): HIGH GRADE SQUAMOUS INTRAEPITHELIAL LESION. SHIFT IN WILLIAM SUGGESTIVE OF BACTERIAL VAGINOSIS. SATISFACTORY FOR EVALUATION; ENDOCERVICAL/ TRANSFORMATION ZONE COMPONENT PRESENT. Slide scanned and imaged by [employer] ThinPrep Imaging System with manual review of all selected srinivasan. Suggest colposcopy as clinically indicated (www.[email or web address].org). Electronically Signed Out DAVID Alexandre([facility]) Kenya [facility] MD Cervical cytology is a screening test primarily for squamous cancers and precursors and has associated false negative and positive results. New technologies such as liquid based sampling may decrease but will not eliminate all false negative results. Regular screening and follow-up of unexplained clinical signs and symptoms are recommended to minimize false negative results. Please see the ASCCP website (www.asccp.org) for followup recommendations. If HPV testing was requested, correlation with the results is suggested (please call Microbiology at [phone] for results). CLINICAL INFORMATION: Menstrual History: : Second trimester Date of Last Menstrual Period: 04/24/04 Other Clinical Conditions: If ASCUS and > 24 years of age, HPV/DNA testing requested. SPECIMEN DESCRIPTION: A: THIN PREP (CERVICAL/VAGINAL) THIN PREP PROCESS CELLULAR ENHANCEMENT ICD: 795.04 (HGSIL) PAPANICOLAOU SMEAR OF CERVIX W/HIGH GRADE SQUAMOUS INTRAEPITHELIAL LESION 041.89 OTHER SPECIFIED BACTERIAL INFECTIONS V76.2 CERVIX, SPECIAL SCREENING FOR MALIGNANT NEOPLASM F: A; RT IMAGE [id number], [id number] C\V (PO) SNOMED CODES: A; [id number] In cases where a pathologist has signed out the report, the service has been rendered in part by a resident. The signing pathologist has performed and is responsible for the reported pathologic evaluation. us Historical Provider LAB PATHOLOGY ORDERABLES Fin al Result SUNQUEST from Last 3 Months or Most Recently Relevant to Health Maintenance Insurance [employer] Care Teams Petroleum Laboratory Technician Relationship Specialty Start Date End Date Jen Villavicencio [address] [place] [address] PCP - General 01/27/23
[2025-02-14] MEDS: ACETAMINOPHEN 500MG TAB 1000 MG PO (12:27)
[2025-02-14] MEDS: KETOROLAC 15MG/ML VIAL 15 MG IV (12:27)
[2025-02-14 12:31] LABS: Hematocrit 40.8 % (37.0-47.0); Hemoglobin 13.8 g/dL (12.2-16.2); Immature Granulocytes % 0.4 %; Mean Corpuscular HGB Conc 33.8 g/dL (31.8-35.4); Mean Corpuscular Hemoglobin 30.7 pg (27.0-31.2); Mean Corpuscular Volume 90.7 fl (81-99); Nucleated Red Blood Cells % 0 %; Platelet Count 285 K/mm3 (142-424); Red Blood Count 4.50 M/mm3 (4.20-5.40); Red Cell Distribution Width-SD 40.3 fL; White Blood Count 10.5 K/mm3 (4.8-10.8)
[2025-02-14 12:36] LABS: Chloride 104 mmol/L (98-107); Sodium 138 mmol/L (136-145)
[2025-02-14 12:37] LABS: Potassium 4.0 mmoL/L (3.5-5.1)
[2025-02-14 12:40] LABS: Anion Gap 13.0 mEq/L (5-15); Blood Urea Nitrogen 12 mg/dl (7-17); Calcium 9.5 mg/dl (8.4-10.2); Carbon Dioxide 25 mmol/L (22.0-30.0); Creatinine Clearance Estimated 120 mL/min (50-200); Creatinine,Serum 0.70 mg/dl (0.52-1.04); Estimated Glomerular Filt Rate 92 ml/min (>60); GFR (African American) 111 ML/MIN (>60); Glucose 89 mg/dl (74-100)
[2025-02-14] MEDS: SODIUM CHLORIDE 0.9% 10ML SYR (RAD ONLY) 10 ML IV (12:44)
[2025-02-14] MEDS: IOPAMIDOL-370 (76%);100ML BOTTLE 75 ML IV (12:44)
--- NOTE | 2025-02-14 12:46 | PC.NURSE ---
[id number] via wheel chair
--- NOTE | 2025-02-14 12:49 | PC.NURSE ---
patient back from CT, call light in reach, no needs at this time.
[2025-02-14 12:58] LABS: Activated Partial Thrombo Time 21.7 seconds (22.8-30.6); INR 0.95 (0.9-1.1); Prothrombin Time 10.6 seconds (10.1-12.5)
[2025-02-14 13:11] LABS: HCG Qualitative, Serum Negative (Negative)
[2025-02-14 14:09] LABS: C-Reactive Protein 5.6 mg/L (0-4)
--- NOTE | 2025-02-14 14:35 | PC.NURSE ---
called radiology about CT read. radiology staff stated it was read and locked and should result in the next 5 minutes.
--- NOTE | 2025-02-14 14:51 | PC.NURSE ---
Dr Bernstein at bedside
[2025-02-14 15:01] VITALS: BP 112/72; PULSE 73; RESP 16; TEMP 36.8; O2SAT 100
== END 2025-02-14 15:01 | disposition home or self-care (01) ==
PROVIDERS: Emergency Provider Student in an Organized Health Care Education/Training Program; PCP Family Medicine
DX: L03.211 Cellulitis of face (principal); H57.12 Ocular pain, left eye; H02.846 Edema of left eye, unspecified eyelid
CPT/HCPCS: 70450; 70481; 80048; 84703; 85025; 85610; 85730; 86140; 96374; 99283; 99284; J1885; Q9967